=== PATIENT | female | born 1990 | race Caucasian/White ===

== ENCOUNTER 2022-09-07 05:56 | Outpatient (REF) | payer OTHER, SELFPAY ==
[2022-09-07 06:11] LABS: MANUAL DIFF FLAG NO
[2022-09-07 07:22] LABS: Basophils Percent Auto 0.2 % (0-2); Eosinophils Absolute Auto 0.1 X10*3/uL (0.0-0.4); Eosinophils Percent Auto 1.3 % (0-4); Hematocrit 36.5 % (37.0-47.0); Hemoglobin 12.2 g/dl (12.0-16.0); Imm Gran Abs Auto 0.02 X10*3/uL (0.00-0.03); Imm Gran Pct Auto 0.4 % (0.0-0.4); Lymphocytes Absolute Auto 1.3 X10*3/uL (1.2-4.9); Mean Corpuscular HGB Conc 33.4 g/dl (31.0-35.0); Mean Corpuscular Hemoglobin 29.3 pg (27.0-33.0); Mean Corpuscular Volume 87.7 fL (80.0-98.0); Mean Platelet Volume 10.6 fL (9.4-12.3); Monocytes Absolute Auto 0.7 X10*3/uL (0.1-1.2); Monocytes Percent Auto 12.2 % (2-11); Neutrophils Absolute Auto 3.3 x10*3/uL (2.0-8.3); Neutrophils Percent Auto 61.9 % (45-73); Platelet Count 271 X10*3/uL (160-400); Red Blood Count 4.16 X10*6/uL (4.20-5.50); Red Cell Distribution Width 12.5 % (11.0-16.0); White Blood Count 5.3 X10*3/uL (4.8-10.8)
[2022-09-07 08:03] LABS: Erythrocyte Sedimentation Rate 23 MM/HR (0-20)
[2022-09-07 08:26] LABS: Alanine Aminotransferase 34 U/L (0-31); Albumin Level 4.3 g/dL (3.5-5.0); Alkaline Phosphatase 70 U/L (39-117); Anion Gap 11 (12-20); Aspartate Amino Transferase 34 U/L (5-31); Bilirubin Total 1.1 mg/dL (0.0-1.0); Blood Urea Nitrogen 11 mg/dL (9-16); C Reactive Protein 0.88 mg/dL (< or = 0.50); Calcium 9.5 mg/dL (8.4-10.2); Carbon Dioxide 28 mmol/L (22-29); Chloride 105 mmol/L (96-108); Cholesterol 183 mg/dL; Estimated Glomerular Filt Rate > 60; Glucose Random 95 mg/dL (60-115); HDL Cholesterol 38 mg/dL; LDL Cholesterol Calculated 113 mg/dl; Potassium 4.2 mmol/L (3.3-5.1); Sodium 140 mmol/L (135-145); TSH reflex Free T4 1.61 uIU/mL (0.32-4.0); Total Protein 7.6 g/dL (6.5-8.0); Triglycerides 162 mg/dL; Vitamin D 25-OH Total 11.7 ng/mL (>30)
[2022-09-07 08:44] LABS: Rheumatoid Factor 33.9 IU/mL (<15.0)
[2022-09-14 13:28] LABS: Anti Nuclear Antibody Pattern Nuclear, Speckled; Anti Nuclear Antibody Screen POSITIVE (NEGATIVE)
== END 2022-09-07 05:57 | disposition home or self-care (01) ==
LOC: HO.LAB 05:56
PROVIDERS: PCP Internal Medicine; Visit Provider Nurse Practitioner Family
DX: Z13.29 Encounter for screening for other suspected endocrine disorder (principal); Z13.21 Encounter for screening for nutritional disorder; Z13.0 Encounter for screening for diseases of the blood and blood-forming organs and certain disorders involving the immune mechanism; Z13.220 Encounter for screening for lipoid disorders; L81.9 Disorder of pigmentation, unspecified; Z82.61 Family history of arthritis; E55.9 Vitamin D deficiency, unspecified; E03.9 Hypothyroidism, unspecified; E78.5 Hyperlipidemia, unspecified; D64.9 Anemia, unspecified
CPT/HCPCS: 36415; 80053; 80061; 82306; 84443; 85025; 85652; 86038; 86039; 86140; 86431

== ENCOUNTER 2022-12-20 08:41 | Outpatient (AMB) | payer OTHER, SELFPAY ==
[2022-12-20 08:46] VITALS: BP 122/68; PULSE 67; TEMP 36.7; O2SAT 99; BMI 31.9
--- NOTE | 2022-12-20 08:46 | MHC.OFFVIS ---
Intake Vital Signs 12/20/22 08:46 Height 5 ft 3 in Weight 180 lb 1.883 oz BMI 31.9 BP 122/68 Blood Pressure Location Rt brachial Position Sitting Pulse 67 Pulse Source Pulse Oximeter Temp 98.1 F Temp Source Skin Pulse Oximetry (%) 99 Intake Visit Reasons: Disorder of pigmentation, unspecified Intake Note: New pt presents today for consult. C/o bl foot pain, reports approx 2 yrs ago began to notice toes purple and super sensitive, work shoes cause extreme pain. 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 The condition started about 2 years ago. Her toes are pinkish purple, usually throughout the day, worse in the cold and when wet. She also has to wear safety shoes at work which make her pain worse. Wearing comfortable shoes reduce her symptoms. This is associated with sensitivity to touch when her toes are purple. She denies any similar symptoms affecting her fingers. States that she has been losing hair over the last 2 years. Denies any skin rashes. Denies any mouth ulcers or blood or frothy urine. Denies any history of DVT/PE. Patient was once before and had a miscarriage. She just discovered that she is 12 weeks . This is her 2nd . Mentions that her mother has SLE manifested by Raynaud's, joint pain and hair loss. [facility] Medical History (Updated 12/20/22 @ 09:33 by Allison Amezquita MD) Peritonitis Surgical History H/O wisdom tooth extraction History of removal of cyst History of tonsillectomy Family History Mother SLE (systemic lupus erythematosus) Osteoarthritis Father Rheumatoid arthritis Anxiety and depression Social History Housing: House Alcohol intake: current Alcohol intake frequency: holidays/special occasions only Patient Tobacco Use Status: Never used Tobacco Tobacco use type: Cigarette e-Cigarette/Vaping Use: Never Used Substance Use Type: Marijuana service: No Current occupational status: employed 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 Female Reproductive History Menstrual Age of Menarche: 13 Total pregnancies: 2 Ab spontaneous: 1 Review of Systems Const Reports weight gain Eyes Reports no additional complaints ENT Denies sore throat Musc Reports tingling Skin/Breast Reports rash and Reports skin pain Neuro Reports tingling Physical Exam Vital Signs: Last Vital Signs Temp 98.1 F 12/20/22 08:46 Pulse 67 12/20/22 08:46 BP 122/68 12/20/22 08:46 Pulse Ox 99 12/20/22 08:46 BMI result Body Mass Index 31.9 Const General: cooperative, healthy appearing and comfortable Nutritional Appearance: overweight Orientation/consciousness: patient oriented x3 Limitations: no limitations HEENT Head: Yes normocephalic and Yes atraumatic Mouth: moist mucous membranes Resp Effort & Inspection: normal respiratory effort and able to speak in complete sentences Auscultation: clear to auscultation bilaterally Cardio Rate: regular rate Rhythm: regular rhythm Neuro General: patient oriented x3 Extrem Other: Chilblains lesions of her toes bilaterally. Toes are pink in color and cool to touch Normal nailfold capillaroscopy Bilateral cool fingers No active synovitis Assessment & Plan Assessment & Plan (1) Chilblain: Code(s): T69.1XXA - Chilblains, initial encounter Qualifiers: Encounter type: initial encounter Qualified Code(s): T69.1XXA - Chilblains, initial encounter Plan: This is a 32-year-old female who presents for evaluation of bilateral pink cool toes for the last 2 years. Clinical picture consistent with chilblains. Patient is 12 weeks . Advised patient to keep her toes as warm as and dry and comfortable as possible Will prescribe nitroglycerin ointment. Re-evaluate in 6 weeks (2) CORAL positive: Code(s): R76.8 - Other specified abnormal immunological findings in serum Plan: Given positive family history of SLE in her mother, chilblain's and positive CORAL. Will order comprehensive serology to screen for underlying autoimmune rheumatic disease Plan I spent 47 minutes reviewing patient's chart, evaluating patient, ordering diagnostic workup, counseling patient and documenting in the chart Orders: Orders Beta-2 Glycoprotein Antibody Today D68.61 - Antiphospholipid syndrome Cardiolipin Antibodies Today D68.61 - Antiphospholipid syndrome Lupus Anticoagulant Panel Today D68.61 - Antiphospholipid syndrome C Reactive Protein Today M32.9 - Systemic lupus erythematosus, unspecified Protein Creatinine Ratio, Ur Today M32.9 - Systemic lupus erythematosus, unspecified Erythrocyte Sedimentation Rate Today M32.9 - Systemic lupus erythematosus, unspecified Complement C3 Today M32.9 - Systemic lupus erythematosus, unspecified Complement C4 Today M32.9 - Systemic lupus erythematosus, unspecified Anti DNA DS Antibody Today M32.9 - Systemic lupus erythematosus, unspecified DNA Double Stranded-Crithidia Today M32.9 - Systemic lupus erythematosus, unspecified Anti Extractable Nuclear Ag Today M32.9 - Systemic lupus erythematosus, unspecified Sjogren's Antibodies Today M32.9 - Systemic lupus erythematosus, unspecified UA w Microscopic Today M32.9 - Systemic lupus erythematosus, unspecified Cyclic Citrullinated Peptide Today M05.9 - Rheumatoid arthritis with rheumatoid factor, unspecified Comprehensive Met. Panel Today M32.9 - Systemic lupus erythematosus, unspecified Complete Blood Count Auto Diff Today M32.9 - Systemic lupus erythematosus, unspecified Cryoglobulin Today M32.9 - Systemic lupus erythematosus, unspecified Immunofixation Pnl, Serum Today M32.9 - Systemic lupus erythematosus, unspecified Protein Electrophoresis, Serum Today M32.9 - Systemic lupus erythematosus, unspecified Hepatitis A,B,C Profile Today Z11.59 - Encounter for screening for other viral diseases Scleroderma 12 Panel Today M34.9 - Systemic sclerosis, unspecified Medications: New nitroglycerin 2% administer 2 doses/day (approx. 6 hrs apart); remove for 10-12 hrs per 24 hours 0.5 inches transdermal BID 60 grams 1RF Coding Level of Care Code New Pt Level 4 (30522) Diagnoses Chilblain T69.1XXA Encounter type: initial encounter CORAL positive R76.8
== END 2022-12-20 09:23 | disposition home or self-care (01) ==
PROVIDERS: PCP Internal Medicine; Visit Provider Student in an Organized Health Care Education/Training Program
DX: T69.1XXA Chilblains, initial encounter (principal); R76.8 Other specified abnormal immunological findings in serum
CPT/HCPCS: 99204

== ENCOUNTER 2022-12-20 08:41 | Outpatient (REF) | payer OTHER, SELFPAY ==
[2022-12-20 10:10] LABS: Appearance Urine Cloudy; Color Urine Dark Yellow; Glucose Urine UA Negative (Negative); Leukocyte Esterase Urine Trace (Negative); Nitrite Urine Negative (Negative); PH 7.5 (5.0-9.0); Specific Gravity - Urine >= 1.030 (1.005-1.025); UMIC TRIGGER UA YES; Urine Blood Negative (Negative); Urine Ketones 15 mg/dL (Negative); Urine Protein 30 (1+) mg/dL (Neg-Trace)
[2022-12-20 10:23] LABS: Bacteria Urine 4+ (None Seen); Hyaline Casts Urine 0-2 /LPF (0-2); RBC Urine 0-2 /HPF (0-2); Squamous Epithelial Cell Urine >20 /HPF (0-2); WBC Urine 0-5 /HPF (0-5)
[2022-12-20 10:53] LABS: Alanine Aminotransferase 18 U/L (0-31); Albumin Level 4.3 g/dL (3.5-5.0); Alkaline Phosphatase 56 U/L (39-117); Aspartate Amino Transferase 22 U/L (5-31); Bilirubin Direct 0.3 mg/dL (0.0-0.5); Bilirubin Total 0.8 mg/dL (0.0-1.0); C Reactive Protein 0.25 mg/dL (< or = 0.50); Total Protein 7.9 g/dL (6.5-8.0)
[2022-12-20 10:55] LABS: Protein/Creatinine Ratio, Ur 0.06 (<0.2); Total Protein Urine Random 23 mg/dL (<12)
[2022-12-20 10:56] LABS: Erythrocyte Sedimentation Rate 23 MM/HR (0-20)
[2022-12-20 11:16] LABS: Vitamin D 25-OH Total 16.4 ng/mL (>30)
[2022-12-20 11:17] LABS: HBsAGNum1 0.41 S/CO (0.00-0.99); Hepatitis A Antibody IgM 0.21 Index (0-0.79); Hepatitis B Core Antibody Nonreactive (Nonreactive); Hepatitis B Surface Antigen Negative (Negative); ~HepC Num1 0.07 S/CO (0.00-0.79); ~Hepatitis A Antibody IgM Nonreactive (Nonreactive); ~Hepatitis B Surface Antibody REACTIVE (Nonreactive); ~Hepatitis C Antibody Nonreactive (Nonreactive)
[2022-12-21 14:48] LABS: Complement C3 154 mg/dL (83-193)
[2022-12-22 13:54] LABS: Anti DNA DS Antibody <1 IU/mL; Antibody to SS-A Antigen >8.0 POS AI (<1.0 NEG); Antibody to SS-B Antigen <1.0 NEG AI (<1.0 NEG); Cardiolipin IgG Ab <2.0 GPL-U/mL; Cardiolipin IgM Ab <2.0 MPL-U/mL; SM/Ribonucleoprotein Ab <1.0 NEG AI (<1.0 NEG); Smith Protein <1.0 NEG AI (<1.0 NEG)
[2022-12-22 15:24] LABS: Cyclic Citrullinated Peptide 218 UNITS
[2022-12-23 12:38] LABS: PTT (LAC) Screen 36 sec (<=40)
[2022-12-26 06:08] LABS: Beta-2 Glycoprotein IgA <2.0 U/mL (<20.0); Beta-2 Glycoprotein IgG <2.0 U/mL (<20.0); Beta-2 Glycoprotein IgM <2.0 U/mL (<20.0)
[2022-12-26 15:17] LABS: DNAds, Crithidia Antibody Negative (Negative)
== END 2022-12-20 08:42 | disposition home or self-care (01) ==
LOC: HO.LAB 08:41
PROVIDERS: Nurse Practitioner Family; PCP Internal Medicine; Visit Provider Student in an Organized Health Care Education/Training Program
DX: M32.9 Systemic lupus erythematosus, unspecified (principal); M05.9 Rheumatoid arthritis with rheumatoid factor, unspecified; D68.61 Antiphospholipid syndrome; E55.9 Vitamin D deficiency, unspecified; R79.89 Other specified abnormal findings of blood chemistry
CPT/HCPCS: 36415; 80076; 81001; 82306; 84156; 85597; 85598; 85613; 85652; 85670; 85730; 86140; 86146; 86147; 86160; 86200; 86225; 86235; 86255; 86704; 86706; 86709; 86803; 87340

== ENCOUNTER 2022-12-28 14:31 | Outpatient (AMB) | payer OTHER, SELFPAY ==
--- NOTE | 2022-12-28 14:38 | MHC.OFFVIS ---
Intake Vital Signs 12/28/22 14:39 Height 5 ft 3 in Weight 181 lb 10.574 oz BMI 32.2 BP 118/70 Blood Pressure Location Rt brachial Position Sitting Pulse 79 Pulse Source Pulse Oximeter Temp 99 F Temp Source Skin Pulse Oximetry (%) 98 Oxygen Delivery Method Room Air Intake Visit Reasons: Discuss lab results Intake Note: Here to discuss test results. Patient is now 13 weeks , awaiting initial US appt. Electronic Gluer Required: No Accompanied by: Self / Same As Patient Allergies cephalexin [CEPHALEXIN] Allergy (Unknown, Verified 12/28/22 14:39) rash Medication List - Last Reconciled 12/28/22 by Allison Amezquita MD hydroxychloroquine 200 mg PO BID nitroglycerin 2% 0.5 inches transdermal BID vit,[id number] 29 mg iron- 1 mg (Prenatabs Rx) 1 tab PO DAILY HPI HPI Comments History of Present Illness Details Patient returns for follow-up after completion of her blood work. He started using the nitroglycerin paste but it isn't very helpful for her chilblains. States that her 1st ultrasound appointment is next week. States that she will be following up with high-risk . Initial history: This is a 32-year-old female who presents for evaluation of bilateral purple toes. The condition started about 2 years ago. Her toes are pinkish purple, usually throughout the day, worse in the cold and when wet. She also has to wear safety shoes at work which make her pain worse. Wearing comfortable shoes reduce her symptoms. This is associated with sensitivity to touch when her toes are purple. She denies any similar symptoms affecting her fingers. States that she has been losing hair over the last 2 years. Denies any skin rashes. Denies any mouth ulcers or blood or frothy urine. Denies any history of DVT/PE. Patient was once before and had a miscarriage. She just discovered that she is 12 weeks . This is her 2nd . Mentions that her mother has SLE manifested by Raynaud's, joint pain and hair loss. [facility] Medical History (Updated 12/28/22 @ 15:22 by Allison Amezquita MD) Lupus (systemic lupus erythematosus) Peritonitis Surgical History H/O wisdom tooth extraction History of removal of cyst History of tonsillectomy Family History Mother SLE (systemic lupus erythematosus) Osteoarthritis Father Rheumatoid arthritis Anxiety and depression Social History Housing: House Alcohol intake: current Alcohol intake frequency: holidays/special occasions only Patient Tobacco Use Status: Never used Tobacco Tobacco use type: Cigarette e-Cigarette/Vaping Use: Never Used Substance Use Type: Marijuana service: No Current occupational status: employed 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 Female Reproductive History Menstrual Age of Menarche: 13 Total pregnancies: 1 (13 weeks as of today.) Review of Systems Eyes Reports no additional complaints Musc Reports tingling Skin/Breast Reports rash and Reports skin pain Neuro Reports tingling Physical Exam Vital Signs: Last Vital Signs Temp 99 F 12/28/22 14:39 Pulse 79 12/28/22 14:39 BP 118/70 12/28/22 14:39 Pulse Ox 98 12/28/22 14:39 Oxygen Delivery Method Room Air 12/28/22 14:39 BMI result Body Mass Index 32.2 Const General: cooperative, healthy appearing and comfortable Nutritional Appearance: overweight Orientation/consciousness: patient oriented x3 Limitations: no limitations HEENT Head: Yes normocephalic and Yes atraumatic Mouth: moist mucous membranes Resp Effort & Inspection: normal respiratory effort and able to speak in complete sentences Neuro General: patient oriented x3 Assessment & Plan Assessment & Plan (1) Lupus (systemic lupus erythematosus): Code(s): M32.9 - Systemic lupus erythematosus, unspecified Qualifiers: Systemic lupus erythematosus type: unspecified Systemic lupus erythematosus organ involvement: other Qualified Code(s): M32.19 - Other organ or system involvement in systemic lupus erythematosus Plan: This is a 32-year-old female who initially presented for evaluation of a positive CORAL. On exam patient had chilblains affecting both feet. Subsequent testing showed positive anti SSA in high titers. Patient has no features of active SLE otherwise. 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 Given positive anti SSA there is a risk of lupus, discussed with patient risk of congenital heart block is about 2%. The risk can be mitigated by starting hydroxychloroquine, the best effect would be if hydroxychloroquine was started 3 months before conception. I believe however that hydroxychloroquine would be recommended in her case. Patient agrees to proceed. Will start hydroxychloroquine 200 mg Twice daily. I explained to patient that she will need to follow up with high-risk and she will likely need serial echocardiograms. A baby aspirin can also be beneficial. Advised patient to discuss it with her OBGYN. Labs before next visit in 3 months (2) Rheumatoid factor positive: Code(s): R76.8 - Other specified abnormal immunological findings in serum Plan: Positive rheumatoid factor Positive anti CCP antibody in high titers but no signs suggestive of rheumatoid arthritis. Will continue to monitor (3) Long-term use of hydroxychloroquine: Code(s): Z79.899 - Other termite exterminator helper (current) drug therapy Plan: Discussed risk of retinopathy associated with hydroxychloroquine. 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 Hydroxychloroquine is started. Continue to use nitroglycerin paste Plan I spent 26 minutes reviewing patient's chart, evaluating patient, ordering diagnostic workup, counseling patient and documenting in the chart Orders: Orders Comprehensive Met. Panel 3 Months M32.9 - Systemic lupus erythematosus, unspecified C Reactive Protein 3 Months M32.9 - Systemic lupus erythematosus, unspecified Protein Creatinine Ratio, Ur 3 Months M32.9 - Systemic lupus erythematosus, unspecified Complete Blood Count Auto Diff 3 Months M32.9 - Systemic lupus erythematosus, unspecified Erythrocyte Sedimentation Rate 3 Months M32.9 - Systemic lupus erythematosus, unspecified Complement C3 3 Months M32.9 - Systemic lupus erythematosus, unspecified Complement C4 3 Months M32.9 - Systemic lupus erythematosus, unspecified Anti DNA DS Antibody 3 Months M32.9 - Systemic lupus erythematosus, unspecified UA w Microscopic 3 Months M32.9 - Systemic lupus erythematosus, unspecified Referrals Ophthalmology Referral Z79.899 - Other termite exterminator helper (current) drug therapy Medications: New hydroxychloroquine 200 mg PO BID 180 tabs 1RF Coding Level of Care Code Est Pt Level 4 (09214) Diagnoses Lupus (systemic lupus erythematosus) M32.19 Systemic lupus erythematosus type: unspecified Systemic lupus erythematosus organ involvement: other Rheumatoid factor positive R76.8 Long-term use of hydroxychloroquine Z79.899 Chilblain T69.1XXA Encounter type: initial encounter
[2022-12-28 14:39] VITALS: BP 118/70; PULSE 79; TEMP 37.2; O2SAT 98; BMI 32.2
== END 2022-12-28 15:39 | disposition home or self-care (01) ==
PROVIDERS: PCP Internal Medicine; Visit Provider Student in an Organized Health Care Education/Training Program
DX: M32.19 Other organ or system involvement in systemic lupus erythematosus (principal); R76.8 Other specified abnormal immunological findings in serum; Z79.899 Other long term (current) drug therapy; T69.1XXA Chilblains, initial encounter
CPT/HCPCS: 99214

== ENCOUNTER → 2022-12-28 14:31 | Outpatient (BNVA) | payer OTHER, SELFPAY | PROVIDERS: PCP Internal Medicine; Visit Provider Student in an Organized Health Care Education/Training Program ==

== ENCOUNTER 2023-02-21 07:46 | Outpatient (AMB) | payer OTHER, SELFPAY ==
--- NOTE | 2023-02-21 07:48 | A.OFFVIS_ITS ---
Intake Vital Signs 02/21/23 07:49 Height 5 ft 3 in Weight 176 lb 5.917 oz BMI 31.2 BP 122/62 Blood Pressure Location Lt brachial Position Sitting Pulse 100 Pulse Source Pulse Oximeter Temp 97.9 F Temp Source Skin Pulse Oximetry (%) 100 Oxygen Delivery Method Room Air Intake Visit Reasons: Increased swelling and pain Intake Note: Pt presents today because she has been having increased lower back pain, and L leg pain; ankle swelling since 01/18/23. Patient is , has been using tylenol. She was last seen in office on 12/28/22 and was started on plaquenil, has eye appt 03/29/23 at 9:[address] Chacon. c/o left ankle and leg pain when walking a lot . 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 Required: No Accompanied by: Self / Same As Patient Allergies cephalexin [CEPHALEXIN] Allergy (Unknown, Verified 02/21/23 07:52) rash Medication List - Last Reconciled 02/21/23 by Allison Amezquita MD aspirin 162 mg PO BEDTIME doxylamine succinate (Nighttime Sleep-Aid (doxylamine)) 25 mg PO BEDTIME hydroxychloroquine 200 mg PO BID metoclopramide HCl 10 mg PO QID PRN nitroglycerin 2% 0.5 inches transdermal BID polyethylene glycol 3350 (Gavilax) 17 grams PO DAILY vit,[id number] 29 mg iron- 1 mg (Prenatabs Rx) 1 tab PO DAILY wheat dextrin (Benefiber Healthy Shape) grams PO HPI HPI Comments History of Present Illness Details 32-year-old female with SLE presents for follow-up. She has 16 weeks today. States that anti she has been having lower back pain and bilateral hip pain, worse with walking, left ankle pain and swelling with increased walking. States that she got intermittent rashes on her forehead that self-resolved. Denied any fever. Compliant with hydroxychloroquine. Started on aspirin by her OBGYN Initial history: This is a 32-year-old female who presents for evaluation of bilateral purple toes. The condition started about 2 years ago. Her toes are pinkish purple, usually throughout the day, worse in the cold and when wet. She also has to wear safety shoes at work which make her pain worse. Wearing comfortable shoes reduce her symptoms. This is associated with sensitivity to touch when her toes are purple. She denies any similar symptoms affecting her fingers. States that she has been losing hair over the last 2 years. Denies any skin rashes. Denies any mouth ulcers or blood or frothy urine. Denies any history of DVT/PE. Patient was once before and had a miscarriage. She just discovered that she is 12 weeks . This is her 2nd . Mentions that her mother has SLE manifested by Raynaud's, joint pain and hair loss. [facility] Medical History Lupus (systemic lupus erythematosus) Peritonitis Surgical History History of removal of cyst H/O wisdom tooth extraction History of tonsillectomy Family History Mother SLE (systemic lupus erythematosus) Osteoarthritis Father Rheumatoid arthritis Anxiety and depression Social History Housing: House Alcohol intake: current Alcohol intake frequency: holidays/special occasions only Patient Tobacco Use Status: Never used Tobacco Tobacco use type: Cigarette e-Cigarette/Vaping Use: Never Used Substance Use Type: Marijuana service: No Current occupational status: employed 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 Female Reproductive History Menstrual Age of Menarche: 13 Review of Systems Musc Reports back pain, Reports arthralgias and Reports joint swelling Skin/Breast Reports rash Physical Exam Vital Signs: Last Vital Signs Temp 97.9 F 02/21/23 07:49 Pulse 100 02/21/23 07:49 BP 122/62 02/21/23 07:49 Pulse Ox 100 02/21/23 07:49 Oxygen Delivery Method Room Air 02/21/23 07:49 BMI result Body Mass Index 31.2 Const General: cooperative, healthy appearing and comfortable Nutritional Appearance: overweight Orientation/consciousness: patient oriented x3 Limitations: no limitations HEENT Other: No oral ulcers Head: Yes normocephalic and Yes atraumatic Mouth: moist mucous membranes Resp Effort & Inspection: normal respiratory effort and able to speak in complete sentences Neuro General: patient oriented x3 Extrem Other: Bilateral lower lumbar paraspinal muscle tenderness Bilateral trochanteric bursa area tenderness with negative Jane's test No active synovitis Assessment & Plan Assessment & Plan (1) Lupus (systemic lupus erythematosus): Comment: dx 11/2022 (+++CORAL, +++SSa, chillblain's) Code(s): M32.9 - Systemic lupus erythematosus, unspecified Qualifiers: Systemic lupus erythematosus type: unspecified Systemic lupus erythematosus organ involvement: other Qualified Code(s): M32.19 - Other organ or system involvement in systemic lupus erythematosus Plan: This is a 32-year-old female with SLE who presents for follow-up. She has 16 with now. She is on hydroxychloroquine 200 mg Twice daily and baby aspirin. Patient has been complaining of bilateral lower back pain, bilateral hip pain and left ankle pain and swelling with walking. Symptoms seem mechanical in nature rather than inflammatory. However will check SLE activity labs today. Advised patient to take Tylenol as needed for her pain. Continue hydroxychloroquine 200 mg Twice daily and continue baby aspirin. Continue to follow up with high-risk Labs before next visit in 3 month (2) Rheumatoid factor positive: Code(s): R76.8 - Other specified abnormal immunological findings in serum Plan: Positive rheumatoid factor Positive anti CCP antibody in high titers but no signs suggestive of rheumatoid arthritis. Will continue to monitor (3) Long-term use of hydroxychloroquine: Code(s): Z79.899 - Other park guard (current) drug therapy Plan: Discussed risk of retinopathy associated with hydroxychloroquine. 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 Hydroxychloroquine was started, per patient's symptoms not much better or worse. It is not particularly bothersome for patient at this point. Plan I spent 26 minutes reviewing patient's chart, evaluating patient, ordering diagnostic workup, counseling patient and documenting in the chart Orders: Orders C Reactive Protein Today M32.9 - Systemic lupus erythematosus, unspecified UA w Microscopic Today M32.9 - Systemic lupus erythematosus, unspecified Complement C4 3 Months M32.9 - Systemic lupus erythematosus, unspecified Protein Creatinine Ratio, Ur 3 Months M32.9 - Systemic lupus erythematosus, unspecified Comprehensive Met. Panel 3 Months M32.9 - Systemic lupus erythematosus, unspecified Complete Blood Count Auto Diff Today M32.9 - Systemic lupus erythematosus, unspecified Comprehensive Met. Panel Today M32.9 - Systemic lupus erythematosus, unspecified Complement C3 Today M32.9 - Systemic lupus erythematosus, unspecified Complement C4 Today M32.9 - Systemic lupus erythematosus, unspecified Erythrocyte Sedimentation Rate Today M32.9 - Systemic lupus erythematosus, unspecified Anti DNA DS Antibody Today M32.9 - Systemic lupus erythematosus, unspecified Protein Creatinine Ratio, Ur Today M32.9 - Systemic lupus erythematosus, unspecified Anti DNA DS Antibody 3 Months M32.9 - Systemic lupus erythematosus, unspecified Complement C3 3 Months M32.9 - Systemic lupus erythematosus, unspecified C Reactive Protein 3 Months M32.9 - Systemic lupus erythematosus, unspecified UA w Microscopic 3 Months M32.9 - Systemic lupus erythematosus, unspecified Complete Blood Count Auto Diff 3 Months M32.9 - Systemic lupus erythematosus, unspecified Coding Level of Care Code Est Pt Level 4 (14192) Diagnoses Systemic lupus erythematosus with other organ involvement, unspecified SLE type M32.19 Systemic lupus erythematosus type: unspecified Systemic lupus erythematosus organ involvement: other Rheumatoid factor positive R76.8 Long-term use of hydroxychloroquine Z79.899 Chilblains, initial encounter T69.1XXA Encounter type: initial encounter
[2023-02-21 07:49] VITALS: BP 122/62; PULSE 100; TEMP 36.6; O2SAT 100; BMI 31.2
== END 2023-02-21 08:20 | disposition home or self-care (01) ==
PROVIDERS: PCP Internal Medicine; Visit Provider Student in an Organized Health Care Education/Training Program
DX: M32.19 Other organ or system involvement in systemic lupus erythematosus (principal); R76.8 Other specified abnormal immunological findings in serum; Z79.899 Other long term (current) drug therapy; T69.1XXA Chilblains, initial encounter
CPT/HCPCS: 99214

== ENCOUNTER 2023-02-21 07:46 | Outpatient (REF) | payer OTHER, SELFPAY ==
[2023-02-21 09:00] LABS: MANUAL DIFF FLAG NO
[2023-02-21 09:21] LABS: Basophils Percent Auto 0.2 % (0-2); Eosinophils Absolute Auto 0.1 X10*3/uL (0.0-0.4); Eosinophils Percent Auto 0.6 % (0-4); Hematocrit 34.4 % (37.0-47.0); Hemoglobin 11.9 g/dl (12.0-16.0); Imm Gran Abs Auto 0.09 X10*3/uL (0.00-0.03); Imm Gran Pct Auto 1.1 % (0.0-0.4); Lymphocytes Percent Auto 12.1 % (20-40); Mean Corpuscular HGB Conc 34.6 g/dl (31.0-35.0); Mean Corpuscular Hemoglobin 29.7 pg (27.0-33.0); Mean Corpuscular Volume 85.8 fL (80.0-98.0); Mean Platelet Volume 10.5 fL (9.4-12.3); Monocytes Absolute Auto 0.8 X10*3/uL (0.1-1.2); Monocytes Percent Auto 8.9 % (2-11); Neutrophils Absolute Auto 6.6 x10*3/uL (2.0-8.3); Neutrophils Percent Auto 77.1 % (45-73); Platelet Count 246 X10*3/uL (160-400); Red Blood Count 4.01 X10*6/uL (4.20-5.50); Red Cell Distribution Width 13.2 % (11.0-16.0); White Blood Count 8.6 X10*3/uL (4.8-10.8)
[2023-02-21 09:45] LABS: Alanine Aminotransferase 10 U/L (0-31); Albumin Level 4.1 g/dL (3.5-5.0); Alkaline Phosphatase 55 U/L (39-117); Anion Gap 12 (12-20); Aspartate Amino Transferase 19 U/L (5-31); Bilirubin Total 0.5 mg/dL (0.0-1.0); Blood Urea Nitrogen 6 mg/dL (9-16); C Reactive Protein 0.38 mg/dL (< or = 0.50); Calcium 9.9 mg/dL (8.4-10.2); Carbon Dioxide 22 mmol/L (22-29); Chloride 104 mmol/L (96-108); Estimated Glomerular Filt Rate > 60; Glucose Random 82 mg/dL (60-115); Potassium 3.4 mmol/L (3.3-5.1); Sodium 135 mmol/L (135-145); Total Protein 7.9 g/dL (6.5-8.0)
[2023-02-21 10:04] LABS: Erythrocyte Sedimentation Rate 44 MM/HR (0-20)
[2023-02-21 10:10] LABS: HBS Num1 11.87 mIU/mL (0-7.99); HBc Num1 0.08 S/CO (0.00-0.79); HBsAGNum1 0.35 S/CO (0.00-0.99); Hepatitis A Antibody IgM 0.16 Index (0-0.79); Hepatitis B Core Antibody Nonreactive (Nonreactive); Hepatitis B Surface Antigen Negative (Negative); ~HepC Num1 0.05 S/CO (0.00-0.79); ~Hepatitis A Antibody IgM Nonreactive (Nonreactive); ~Hepatitis C Antibody Nonreactive (Nonreactive)
[2023-02-21 10:43] LABS: Appearance Urine Clear; Color Urine Dark Yellow; Glucose Urine UA Negative (Negative); Leukocyte Esterase Urine Trace (Negative); Nitrite Urine Negative (Negative); PH 6.5 (5.0-9.0); Specific Gravity - Urine >= 1.030 (1.005-1.025); UMIC TRIGGER UA YES; Urine Blood Negative (Negative); Urine Ketones 15 mg/dL (Negative); Urine Protein 30 (1+) mg/dL (Neg-Trace)
[2023-02-21 10:47] LABS: Bacteria Urine Trace (None Seen); Hyaline Casts Urine 0-2 /LPF (0-2); RBC Urine 0-2 /HPF (0-2); WBC Urine 0-5 /HPF (0-5)
[2023-02-21 11:21] LABS: HBS Num2 12.35 mIU/mL (0-7.99); HBS Num3 12.37 mIU/mL (0-7.99); ~Hepatitis B Surface Antibody REACTIVE (Nonreactive)
[2023-02-21 11:40] LABS: Creatinine Urine 352.03 mg/dL; Protein/Creatinine Ratio, Ur 0.07 (<0.2); Total Protein Urine Random 25 mg/dL (<12)
[2023-02-23 11:43] LABS: Complement C3 169 mg/dL (83-193)
[2023-02-24 07:38] LABS: Anti DNA DS Antibody <1 IU/mL
[2023-02-24 10:44] LABS: Prot Elec - Albumin 4.1 g/dL (3.8-4.8); Prot Elec - Alpha1 0.4 g/dL (0.2-0.3); Prot Elec - Alpha2 0.8 g/dL (0.5-0.9); Prot Elec - Beta 1 0.5 g/dL (0.4-0.6); Prot Elec - Beta 2 0.4 g/dL (0.2-0.5); Prot Elec - Gamma 1.3 g/dL (0.8-1.7); Prot Elec - Total Protein 7.5 g/dL (6.1-8.1)
[2023-03-02 11:13] LABS: IgA 178 mg/dL (47-310); IgG 1525 mg/dL (600-1640); IgM 99 mg/dL (50-300)
[2023-03-02 12:44] LABS: Centromere Protein A Ab <11 SI (<11); Centromere Protein B Ab <11 SI (<11); Fibrillarin Ab <11 SI (<11); PM SCL 100 Ab <11 SI (<11); PM SCL 75 Ab <11 SI (<11); RNA Polymerase III RP11 Ab <11 SI (<11); RNA Polymerase III RP155 Ab <11 SI (<11); SCL-70 Extractable Nuclear Ab <11 SI (<11); Th-To Ab <11 SI (<11); U1 SNRNP RNP 70KD <11 SI (<11); U1 SNRNP RNP A 13 SI (<11); U1 SNRNP RNP C <11 SI (<11)
== END 2023-02-21 07:47 | disposition home or self-care (01) ==
LOC: HO.LAB 07:46
PROVIDERS: PCP Internal Medicine; Visit Provider Student in an Organized Health Care Education/Training Program
DX: Z11.59 Encounter for screening for other viral diseases (principal); M34.9 Systemic sclerosis, unspecified; M32.9 Systemic lupus erythematosus, unspecified; M32.19 Other organ or system involvement in systemic lupus erythematosus; R76.8 Other specified abnormal immunological findings in serum; T69.1XXA Chilblains, initial encounter; Z79.899 Other long term (current) drug therapy; Z72.89 Other problems related to lifestyle
CPT/HCPCS: 36415; 80053; 81001; 82570; 82595; 82784; 84156; 84165; 84182; 85025; 85652; 86140; 86160; 86225; 86235; 86334; 86704; 86706; 86709; 86803; 87340

== ENCOUNTER 2023-09-12 14:23 | Outpatient (AMB) | payer OTHER, SELFPAY ==
--- NOTE | 2023-09-12 14:31 | A.OFFPC_ITS ---
Vital Signs 09/12/23 14:33 Height 5 ft 3 in Weight 172 lb 4 oz BMI 30.5 BP 130/68 Blood Pressure Location Lt brachial Position Sitting Pulse 56 Pulse Source Pulse Oximeter Pulse Oximetry (%) 96 Oxygen Delivery Method Room Air Intake Visit Reasons: PE Intake Note: Patient is here today for a physical. 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 Required: No Senior Application Security Consultant: Not Required per policy Accompanied by: Self / Same As Patient Allergies No Known Allergies Allergy (Verified 09/12/23 14:37) Tobacco use date assessed: 09/12/23 Dental Screening Dental Screen Date: 09/12/23 Did you have a dental visit in the last 12 months?: Yes Did you have a dental problem in the last 6 months where you did not have access to dental care?: No Was dental information given to patient?: Patient has dentist HPI PE HPI Details 32-year-old female presents to the [facility] requesting an annual physical. Three months into patient was diagnosed with SLE. She had a and a successful . Both her parents are positive for autoimmune disease. Patient is taking hydroxychloroquine and seeing a chronic care nurse. Patient is pumping milk but unable to breastfeed. [facility] Medical History Lupus (systemic lupus erythematosus) Peritonitis Surgical History History of delivery History of removal of cyst H/O wisdom tooth extraction History of tonsillectomy Family History Mother SLE (systemic lupus erythematosus) Osteoarthritis Father Rheumatoid arthritis Anxiety and depression Social History Housing: House Alcohol intake: current Alcohol intake frequency: holidays/special occasions only Patient Tobacco Use Status: Never used Tobacco Tobacco use type: Cigarette e-Cigarette/Vaping Use: Never Used Second Hand Smoke Exposure: No Substance Use Type: Marijuana service: No Current occupational status: employed 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 1. Little interest or pleasure in doing things: not at all 2. Feeling down, depressed, or hopeless: not at all 3. Trouble falling or staying asleep, or sleeping too much: not at all 4. Feeling tired or having little energy: not at all 5. Poor appetite or overeating: not at all 6. Feeling bad about yourself - or that you are a failure or have let yourself or your family down: not at all 7. Trouble concentrating on things, such as reading the newspaper or watching television: not at all 8. Moving or speaking so slowly that other people could have noticed. Or the opposite - being so fidgety or restless that you have been moving around a lot more than usual: not at all 9. Thoughts that you would be better off or of hurting yourself in some way: not at all Total score: 0 Depression Screening Interpretation: Negative Depression Screening Done: Yes Source: Developed by Drs. Dre Becker, Bonny Salinas, Jordan Templeton and colleagues, with an educational marciano from [employer]. Thrive Questionnaire Date Thrive assessed: 09/12/23 I am a: Patient What is your living situation today?: I have a steady place to live Within the past 12 months, did the food you bought not last and you didn't have the money to get more?: Never true Within the past 12 months, did you worry whether your food would run out before you got money to buy more?: Never true Do you have trouble paying for medicines?: No Do you have trouble getting transportation to medical appointments?: No Do you have trouble paying your heating and electricity bill?: No Do you have trouble taking care of your child, family member or friend?: No Do you have trouble with day-to-day activities such as bathing, preparing meals, shopping, managing finances, etc.?: No Are you currently unemployed and looking for a job?: No Are you interested in more education?: No Currently or been in a relationship where the following occur: no concerns reported THRIVE Score: 0 AUDIT C Alcohol Use Questionnaire (AUDIT-C) 1. How often do you have a drink containing alcohol?: Never Total Score: 0 YESICA-7 AMB Questionnaire YESICA-7 Date YESICA - 7 assessed: 09/12/23 Feeling nervous, anxious, or on edge: 0 = Not at all Not being able to stop or control worryin = Not at all Worrying too much about different things: 0 = Not at all Trouble relaxin = Not at all Being so restless that it is hard to sit still: 0 = Not at all Becoming easily annoyed or irritable: 0 = Not at all Feeling afraid as if something awful might happen: 0 = Not at all Total YESICA-7 score (0-4 normal; 5-9 mild; 10-14 moderate; 15-21 severe): 0 Source: Developed by Drs. Dre Becker, Bonny Salinas, Jordan Templeton and colleagues, with an educational marciano from [employer]. Physical exam (Primary Care) Vital Signs: Last Vital Signs Pulse 56 09/12/23 14:33 BP 130/68 09/12/23 14:33 Pulse Ox 96 09/12/23 14:33 Oxygen Delivery Method Room Air 09/12/23 14:33 Care Plan Goal for BP management: Blood pressure is in range. BMI result Body Mass Index 30.5 Tobacco/Smoking Status: Tobacco use Status Tobacco use date assessed 09/12/23 09/12/23 14:41 Patient Tobacco Use Status Never used Tobacco 09/12/23 14:41 Tobacco use type Cigarette 09/12/23 14:41 e-Cigarette/Vaping Use Never Used 09/12/23 14:41 PHQ-9: PHQ-9 Score PHQ-9: Total score 0 09/12/23 14:41 Depression Screening Interpretation: Negative Thrive Assessment: Date of Thrive Assessment Date Thrive assessed 09/12/23 09/12/23 14:41 Currently or been in a relationship where the following occur: no concerns reported Const General: cooperative and healthy appearing Nutritional Appearance: well nourished Orientation/consciousness: patient oriented x3 Limitations: no limitations HENMT Head: Yes normal to inspection Eyes General: appearance normal, both eyes and all related structures Neck Neck: Yes normal visual inspection Chest Chest palpation & inspection: normal palpation of entire chest wall Resp Effort & Inspection: normal respiratory effort Neuro General: patient oriented x3 Assessment and Plan Assessment & Plan (1) Annual physical exam: Code(s): Z00.00 - Encounter for general adult medical examination without abnormal findings Plan: Patient to follow-up with chronic care nurse for her SLE. Counseling on the importance of diet and exercise done. Coding Level of Care Code Est Pt Prev Care [id number](88546) Diagnoses Annual physical exam Z00.00
[2023-09-12 14:33] VITALS: BP 130/68; PULSE 56; O2SAT 96; BMI 30.5
== END 2023-09-12 15:37 | disposition home or self-care (01) ==
PROVIDERS: PCP Internal Medicine; Visit Provider Internal Medicine
DX: Z00.00 Encounter for general adult medical examination without abnormal findings (principal)
CPT/HCPCS: 99395

== ENCOUNTER 2024-08-11 21:52 | Emergency (ER) | payer OTHER, SELFPAY ==
--- NOTE | ~2024-08-11 | CT_ITS ---
CLINICAL HISTORY: r flank pain ?stone Exam: CT abdomen and pelvis without intravenous contrast. Comparison: None. Findings: CT abdomen: Lung bases are clear. No acute bony abnormality. No fracture. No discrete renal or ureteral calculi identified. There is subtle hyperdensity at the corticomedullary junction of both kidneys. No hydronephrosis or perinephric stranding. Unenhanced liver, spleen, pancreas, gallbladder, and adrenal glands are unremarkable. [id number] amount of ingested contents throughout the stomach. No dilated small bowel. No free fluid or free air. CT pelvis: [id number] amount of stool throughout the colon. No colonic wall thickening or pericolonic inflammatory stranding is evident. Appendix is surgically absent. No enlarged lymph nodes. No free fluid or free air. Impression: 1. No discrete renal or ureteral calculi identified. The subtle hyperdensity of the corticomedullary junction of both kidneys can be seen with dehydration or early stone formation. 2. Prominent ingested contents within the stomach with moderate to large amount of stool throughout the colon. This suggests stool retention with delayed gastric emptying. Clinical correlation advised. This document has been electronically signed by: Raheem Mckoy MD on 08/12/2024 01:52:50
[2024-08-11 22:02] VITALS: BP 119/73; PULSE 87; RESP 22; TEMP 36.6; O2SAT 100; BMI 30.5
--- NOTE | 2024-08-11 22:44 | ED.ABDPAIN ---
HPI - Abdominal Pain General Chief Complaint: Abdominal Pain Stated Complaint: rt side to back pain Time Seen by Provider: 08/11/24 22:44 Source: patient Mode of arrival: ambulatory Limitations: no limitations History of Present Illness ED Provider: HPI narrative: Patient with no significant past medical history noted sudden onset of pain in right flank area radiating to the lower right lower abdomen started since a.m. today with nausea no vomiting no diarrhea no urinary symptoms patient never had similar pain in the past Related Data Previous Rx's ?Medication ?Instructions ?Recorded hydroxychloroquine 200 mg tablet 200 mg PO BID #180 tabs 12/28/22 polyethylene glycol 3350 17 17 g PO DAILY #510 grams 08/12/24 gram/dose oral powder (Miralax) Allergies Allergy/AdvReac Type Severity Reaction Status Date / Time No Known Allergies Allergy Verified 08/11/24 22:07 Review of Systems Review of Systems Yes all other systems are reviewed and are negative PMFSH Past Medical History Medical History Lupus (systemic lupus erythematosus) Peritonitis Surgical History History of delivery History of removal of cyst H/O wisdom tooth extraction History of tonsillectomy Family History Family History Mother SLE (systemic lupus erythematosus) Osteoarthritis Father Rheumatoid arthritis Anxiety and depression Social History Social History Housing: House Alcohol intake: current Alcohol intake frequency: does not drink Patient Tobacco Use Status: Never used Tobacco Tobacco use type: Cigarette e-Cigarette/Vaping Use: Never Used Second Hand Smoke Exposure: No Substance Use Type: Marijuana service: No Current occupational status: employed 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 Oriented X3. In severe distress Eyes: No pallor or icterus ENT: Pharynx normal. Oral Mucosa moist Neck: Normal inspection. Neck supple. CVS: Normal heart rate and rhythm. Pulses normal. Respiratory: No respiratory distress. Equal air entry bilateral, no wheezing/rales/rhonchi Abdomen: Soft and nontender. Bowel sounds are present, no mass palpable, right CVA tenderness ++ Skin: Skin warm and dry. Normal skin color. Normal skin turgor. Extremities: No lower extremity edema. No calf tenderness Neuro: Oriented X 3. No motor deficit. Medical Decision Making Medical Decision Making [facility] Narrative: Patient with back pain and diffuse abdominal pain does have history of constipation CT scan negative for acute labs are stable no UTI findings no hematuria CT scan showed constipation likely the cause for the pain or likely she might have passed a small stone Differential Diagnosis Differential Diagnoses: The differential diagnosis associated with the presentation includes Renal colic/ureteric stone/appendicitis/constipation Lab Data 08/11/24 23:02 08/11/24 23:02 Labs: Lab Results 08/11/24 08/12/24 Range/Units 23:02 00:24 WBC 7.0 (4.8-10.8) X10*3/uL RBC 4.07 L (4.20-5.50) X10*6/uL Hgb 11.3 L (12.0-16.0) g/dl Hct 33.9 L (37.0-47.0) % MCV 83.3 (80.0-98.0) fL MCH 27.8 (27.0-33.0) pg MCHC 33.3 (31.0-35.0) g/dl RDW 13.9 (11.0-16.0) % Plt Count 225 (160-400) X10*3/uL MPV 10.4 (9.4-12.3) fL Immature Gran % (Auto) 0.1 (0.0-0.4) % Neut % (Auto) 72.3 (45-73) % Lymph % (Auto) 17.5 L (20-40) % [place] % (Auto) 9.1 (2-11) % Eos % (Auto) 0.9 (0-4) % Baso % (Auto) 0.1 (0-2) % Lymph # (Auto) 1.2 (1.2-4.9) X10*3/uL [place] # (Auto) 0.6 (0.1-1.2) X10*3/uL Eos # (Auto) 0.1 (0.0-0.4) X10*3/uL Baso # (Auto) 0.0 (0.0-0.2) X10*3/uL Abs Immat Gran (auto) 0.01 (0.00-0.03) X10*3/uL Absolute Neuts (auto) 5.0 (2.0-8.3) x10*3/uL Absolute Nucleated RBC 0.000 (0.0-0.012) X10*3/uL Nucleated RBC % (auto) 0.0 (0.0-0.2) /100WBC Sodium 138 (135-145) mmol/L Potassium 3.9 (3.3-5.1) mmol/L Chloride 109 H (96-108) mmol/L Carbon Dioxide 22 (22-29) mmol/L Anion Gap 11 L (12-20) BUN 16 (9-16) mg/dL Creatinine 0.74 (0.5-1.4) mg/dL Estim Creat Clear Calc 107.9 Estimated GFR > 60 Random Glucose 108 (60-115) mg/dL Calcium 9.1 D (8.4-10.2) mg/dL Total Bilirubin 0.3 (0.0-1.0) mg/dL AST 27 (5-31) U/L ALT 19 (0-31) U/L Alkaline Phosphatase 78 (39-117) U/L Total Protein 7.5 (6.5-8.0) g/dL Albumin 4.3 (3.5-5.0) g/dL Beta HCG, Quant < 2 mIU/mL Urine Color Yellow Urine Appearance Clear Urine pH 6.5 (5.0-9.0) Ur Specific [place] >= 1.030 H (1.005-1.025) Urine Protein 30 (1+) H (Neg-Trace) mg/dL Urine Glucose (UA) Negative (Negative) mg/dL Urine Ketones Trace (Negative) mg/dL Urine Blood Negative (Negative) Urine Nitrite Negative (Negative) Ur Leukocyte Esterase Negative (Negative) Urine RBC 0-2 (0-2) /HPF Urine WBC 0-5 (0-5) /HPF Ur Squamous Epith Cells 0-2 (0-2) /HPF Urine Bacteria None Seen (None Seen) Hyaline Casts 0-2 (0-2) /LPF Independent Interpretation I performed an independent interpretation of an: CT Scan Radiology Impression Discussion of test interpretation with radiology: I have reviewed the radiologist's reading. Medications Administered Discontinued Medications Generic Name Dose Route Start Last Admin Trade Name Freq PRN Reason Stop Dose Admin Bisacodyl 10 mg 08/12/24 01:55 08/12/24 02:05 Bisacodyl 5 Mg Tablet.Dr PO 08/12/24 01:56 10 mg ONCE ONE Administration Sodium Chloride 1,000 mls @ 999 mls/hr 08/11/24 22:48 08/12/24 02:01 Ns IV 08/11/24 23:48 Infused .Q1H1M ONE Infusion Ketorolac Tromethamine 30 mg 08/11/24 22:49 08/11/24 23:17 Ketorolac Tromethamine 30 Mg/Ml Vial IVPUSH 08/11/24 22:50 30 mg ONCE ONE Administration Magnesium Hydroxide 30 ml 08/12/24 01:55 08/12/24 02:05 Milk Of Magnesia 30 Ml Oral.Susp PO 08/12/24 01:56 30 ml ONCE ONE Administration Morphine Sulfate 4 mg 08/11/24 22:49 08/11/24 23:18 Morphine Sulfate 4 Mg/Ml Cartridge IVPUSH 08/11/24 22:50 4 mg ONCE ONE Administration Protocol Ondansetron HCl 4 mg 08/11/24 22:49 08/11/24 23:17 Ondansetron Hcl 4 Mg/2 Ml Vial IVPUSH 08/11/24 22:50 4 mg ONCE ONE Administration Discharge Plan Discharge Clinical Impression: Constipation, Abdominal pain Patient Disposition: Home, Self-Care Instructions: Constipation (DC), Abdominal Pain (ED) Additional Instructions: Cause of your flank and abdominal pain not clear your CT scan is negative for kidney stone Likely you have constipation of the cause of the pain Drink plenty of fluids Stool softener as advised Prescriptions: New polyethylene glycol 3350 [Miralax] 17 gram/dose powder 17 g PO DAILY Qty: 510 0RF No Action hydroxychloroquine 200 mg tablet 200 mg PO BID Qty: 180 1RF Interventions: ED Discharge Assessment Last Done: 08/12/24 02:13 Discharge Date/Time: 08/12/24 02:14 Print Language: Gibralt[place]
[2024-08-11 23:10] LABS: MANUAL DIFF FLAG NO
[2024-08-11 23:12] LABS: Basophils Percent Auto 0.1 % (0-2); Eosinophils Absolute Auto 0.1 X10*3/uL (0.0-0.4); Eosinophils Percent Auto 0.9 % (0-4); Hematocrit 33.9 % (37.0-47.0); Hemoglobin 11.3 g/dl (12.0-16.0); Imm Gran Abs Auto 0.01 X10*3/uL (0.00-0.03); Imm Gran Pct Auto 0.1 % (0.0-0.4); Lymphocytes Absolute Auto 1.2 X10*3/uL (1.2-4.9); Lymphocytes Percent Auto 17.5 % (20-40); Mean Corpuscular HGB Conc 33.3 g/dl (31.0-35.0); Mean Corpuscular Hemoglobin 27.8 pg (27.0-33.0); Mean Corpuscular Volume 83.3 fL (80.0-98.0); Mean Platelet Volume 10.4 fL (9.4-12.3); Monocytes Absolute Auto 0.6 X10*3/uL (0.1-1.2); Monocytes Percent Auto 9.1 % (2-11); Neutrophils Percent Auto 72.3 % (45-73); Platelet Count 225 X10*3/uL (160-400); Red Blood Count 4.07 X10*6/uL (4.20-5.50); Red Cell Distribution Width 13.9 % (11.0-16.0)
[2024-08-11] MEDS: Ketorolac Tromethamine 30 MG/ML VIAL IVPUSH (23:17)
[2024-08-11] MEDS: ondansetron HCL 4 MG/2 ML VIAL IVPUSH (23:17)
[2024-08-11] MEDS: Morphine Sulfate 4 MG/ML CARTRIDGE IVPUSH (23:18)
[2024-08-11] MEDS: 0.9 % Sodium Chloride 1,000 ML 999 ML IV (23:19)
[2024-08-11 23:37] LABS: Alanine Aminotransferase 19 U/L (0-31); Albumin Level 4.3 g/dL (3.5-5.0); Alkaline Phosphatase 78 U/L (39-117); Anion Gap 11 (12-20); Aspartate Amino Transferase 27 U/L (5-31); Bilirubin Total 0.3 mg/dL (0.0-1.0); Blood Urea Nitrogen 16 mg/dL (9-16); Calcium 9.1 mg/dL (8.4-10.2); Carbon Dioxide 22 mmol/L (22-29); Chloride 109 mmol/L (96-108); Creatinine Clr Calc Pharmacy 107.9; Estimated Glomerular Filt Rate > 60; Glucose Random 108 mg/dL (60-115); HCG Quantitative < 2 mIU/mL; Potassium 3.9 mmol/L (3.3-5.1); Sodium 138 mmol/L (135-145); Total Protein 7.5 g/dL (6.5-8.0)
[2024-08-12 00:19] VITALS: BP 93/60; PULSE 53; TEMP 36.6; O2SAT 98
[2024-08-12 00:33] LABS: Appearance Urine Clear; Color Urine Yellow; Glucose Urine UA Negative (Negative); Leukocyte Esterase Urine Negative (Negative); Nitrite Urine Negative (Negative); PH 6.5 (5.0-9.0); Specific Gravity - Urine >= 1.030 (1.005-1.025); UMIC TRIGGER UACC YES; Urine Blood Negative (Negative); Urine Ketones Trace mg/dL (Negative); Urine Protein 30 (1+) mg/dL (Neg-Trace)
[2024-08-12 00:36] LABS: Bacteria Urine None Seen (None Seen); Hyaline Casts Urine 0-2 /LPF (0-2); RBC Urine 0-2 /HPF (0-2); Squamous Epithelial Cell Urine 0-2 /HPF (0-2); WBC Urine 0-5 /HPF (0-5)
[2024-08-12 01:56] VITALS: BP 118/63; PULSE 61; RESP 14; TEMP 36.9; O2SAT 96
[2024-08-12] MEDS: bisacodyL 5 MG TABLET.DR 10 MG PO (02:05)
[2024-08-12] MEDS: Milk of Magnesia 30 ML ORAL.SUSP PO (02:05)
[2024-08-12 02:13] VITALS: BP 118/63; PULSE 61; RESP 14; TEMP 36.9; O2SAT 96
== END 2024-08-12 02:14 | disposition home or self-care (01) ==
PROVIDERS: Emergency Provider Internal Medicine; PCP Internal Medicine
DX: K59.00 Constipation, unspecified (principal); R10.31 Right lower quadrant pain; R11.0 Nausea
CPT/HCPCS: 36415; 74176; 80053; 81001; 84702; 85025; 96361; 96374; 96375; 99285; J1885; J2270; J2405

== ENCOUNTER → 2024-08-12 | Outpatient (BNV) | payer OTHER, MEDICAID, SELFPAY | PROVIDERS: Emergency Provider Internal Medicine; PCP Internal Medicine; Visit Provider Radiology Diagnostic Radiology | DX: R10.9 Unspecified abdominal pain (principal) | CPT/HCPCS: 74176 ==

== ENCOUNTER 2024-10-07 03:26 | Emergency (ER) | payer OTHER, SELFPAY ==
[2024-10-07 03:32] VITALS: BP 129/94; PULSE 70; RESP 20; TEMP 36.6; O2SAT 98; BMI 30.7
[2024-10-07 04:08] VITALS: BP 129/94; PULSE 70; RESP 20; TEMP 36.6; O2SAT 98
--- NOTE | 2024-10-07 07:11 | ED.BACK ---
HPI - Back Pain/Injury General Chief Complaint: Back Pain/Injury Stated Complaint: body pain Time Seen by Provider: 10/07/24 06:42 Source: patient Mode of arrival: ambulatory Limitations: no limitations History of Present Illness ED Provider: Dr. Yaya Baker HPI Narrative: 34-year-old female with history of asthma, lupus, CORAL positive who presents emergency department for evaluation back pain. The patient states she has been experiencing back pain since the of her child 13 months prior. She states that when she was 3 months she had discoloration of her toes which led to the diagnosis of lupus and being in a positive. At that time she was started on hydrochloroquine. She states that she had a and after delivery she developed back pain. She states she also stops hydrochloroquine after delivery And has not followed up with the ruching machine operator. She states that once or twice a month she has been getting back pain which describes as a breaking sensation in her entire spine. She states that yesterday at around 17:00 hours she developed this severe pain throughout her entire back. She took 1600 mg of ibuprofen with no relief for discomfort. She denied numbness or weakness of her lower extremities. She denied loss of bowel or bladder control. She denied fever, chills, cough, chest pain or shortness of breath. She states she does have a follow-up appointment with her ruching machine operator in the next month. Related Data Previous Rx's ?Medication ?Instructions ?Recorded hydroxychloroquine 200 mg tablet 200 mg PO BID #180 tabs 12/28/22 polyethylene glycol 3350 17 17 g PO DAILY #510 grams 08/12/24 gram/dose oral powder (Miralax) cyclobenzaprine 10 mg tablet 10 mg PO TID PRN muscle pain or 10/07/24 spasm #20 tabs Allergies Allergy/AdvReac Type Severity Reaction Status Date / Time No Known Allergies Allergy Verified 10/07/24 03:34 Review of Systems Review of Systems: Yes all other systems are reviewed and are negative [facility] Past Medical History [facility] Narrative: Social history: She denies tobacco, alcohol and drug use. Medical History Lupus (systemic lupus erythematosus) Peritonitis Surgical History History of delivery History of removal of cyst H/O wisdom tooth extraction History of tonsillectomy Family History Family History Mother SLE (systemic lupus erythematosus) Osteoarthritis Father Rheumatoid arthritis Anxiety and depression Social History Social History Housing: House Alcohol intake: current Alcohol intake frequency: does not drink Patient Tobacco Use Status: Never used Tobacco Tobacco use type: Cigarette Smoked in Last 30 Days: No e-Cigarette/Vaping Use: Never Used Second Hand Smoke Exposure: No Use of substances other than those prescribed or required for medical reasons: No Substance Use Type: Marijuana Advance Directives: No Advance Directives Information Provided: No Do you have a plan to hurt others: No Plan Patient : No service: No Current occupational status: employed 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 Cognitive needs: No Hearing needs: No Vision needs: No Physical Exam Vital Signs: Vital Signs: Last Vital Signs Temp 98.4 F 10/07/24 07:56 Pulse 76 10/07/24 07:56 Resp 16 10/07/24 07:56 BP 104/66 10/07/24 07:56 Pulse Ox 99 10/07/24 07:56 O2 Del Method Room Air 10/07/24 07:56 BMI result Body Mass Index 30.7 Vital signs were normal Exam: General: Awake, alert in no distress Head: Normocephalic, atraumatic EENT: PERRL, Lids normal, sclera normal, conjunctiva normal, nose normal , ears normal, throat without erythema or exudates Neck: Supple, no adenopathy Lung: breath sounds symmetric, no wheezing, rales or rhonchi Chest: symmetric movement, nontender Heart: regular rate and rhythm, normal S1, S2 no murmurs or rubs Abdomen: soft, non-tender, nondistended, normal bowel sounds Back: patient has tenderness with palpation over her thoracic lumbar and sacral vertebrae with no localizing point tenderness, she has tenderness palpation of the paraspinal thoracic muscles in her lumbar and sacral spine area. There is no erythema increased warmth to her skin. No lesions noted on her skin. Extremities: no deformities, moves all extremities symmetrically Neuro: Awake, alert, oriented, normal speech, cranial nerves intact, moves all extremities symmetrically Psych: Pleasant, cooperative Medical Decision Making Medical Decision Making MDM Narrative: 34-year-old female with history of asthma, lupus, CORAL positive who presents emergency department for evaluation back pain. The patient states she has been experiencing back pain since the of her child 13 months prior. She states that when she was 3 months she had discoloration of her toes which led to the diagnosis of lupus and being in a positive. At that time she was started on hydrochloroquine. She states that she had a and after delivery she developed back pain. She states she also stops hydrochloroquine after delivery And has not followed up with the ruching machine operator. She states that once or twice a month she has been getting back pain which describes as a breaking sensation in her entire spine. She states that yesterday at around 17:00 hours she developed this severe pain throughout her entire back. She took 1600 mg of ibuprofen with no relief for discomfort. She denied numbness or weakness of her lower extremities. She denied loss of bowel or bladder control. She denied fever, chills, cough, chest pain or shortness of breath.Vital signs were normal. Physical examination revealed tenderness palpation of her thoracic, lumbar and sacral vertebrae as well as tenderness palpation of her paraspinal muscles in the lumbar sacral region with no increased warmth, erythema or lesions noted. Differential diagnosis: Includes but is not limited to Musculoskeletal injury, skull, spasm, disc disease, joint disease, rheumatologic disease ( lupus flare up ), anemia, electrolyte abnormalities Course: My independent interpretation the patient's laboratory evaluation is as follows: Normocytic anemia with an H&H of 10.9 and 32.4. White blood cell count was normal 5700. CMP was normal. ESR was only slightly elevated 27. CRP was normal at 0.22. TSH was normal. Quantitative beta hCG was below detectable limits. Given her relatively normal inflammatory markers , I do not think the patient has a lupus flare-up however lupus may be playing a part in her pain and I did discuss this with her. I did tell her that 1600 mg of ibuprofen is too high of a dose and cause significant side effects such as gastritis or peptic ulcers. Patient was advised to take ibuprofen 400 mg q.6 hours as needed for pain, Tylenol 1000 mg q.6 hours as needed for pain and she was prescribed Flexeril 10 mg Q 6-8 hours as needed for pain or spasm. The patient was given printed and verbal instructions and discharged home. I did emphasize the importance of following up with her ruching machine operator to determine if she needs to be back on hydrochloroquine to see if this improves her back pain. Admission/Observation Consideration of admission/observation: Escalation of care including admission/observation considered ( yes) Lab Data MDM Lab Attestation statement: I reviewed the patient's lab results. 10/07/24 07:45 10/07/24 07:45 Labs: Lab Results 10/07/24 Range/Units 07:45 WBC 5.7 (4.8-10.8) X10*3/uL RBC 3.88 L (4.20-5.50) X10*6/uL Hgb 10.9 L (12.0-16.0) g/dl Hct 32.4 L (37.0-47.0) % MCV 83.5 (80.0-98.0) fL MCH 28.1 (27.0-33.0) pg MCHC 33.6 (31.0-35.0) g/dl RDW 13.5 (11.0-16.0) % Plt Count 251 (160-400) X10*3/uL MPV 10.3 (9.4-12.3) fL Immature Gran % (Auto) 0.4 (0.0-0.4) % Neut % (Auto) 64.8 (45-73) % Lymph % (Auto) 20.2 (20-40) % [place] % (Auto) 13.2 H (2-11) % Eos % (Auto) 1.2 (0-4) % Baso % (Auto) 0.2 (0-2) % Lymph # (Auto) 1.2 (1.2-4.9) X10*3/uL [place] # (Auto) 0.8 (0.1-1.2) X10*3/uL Eos # (Auto) 0.1 (0.0-0.4) X10*3/uL Baso # (Auto) 0.0 (0.0-0.2) X10*3/uL Abs Immat Gran (auto) 0.02 (0.00-0.03) X10*3/uL Absolute Neuts (auto) 3.7 (2.0-8.3) x10*3/uL Absolute Nucleated RBC 0.000 (0.0-0.012) X10*3/uL Nucleated RBC % (auto) 0.0 (0.0-0.2) /100WBC ESR 27 H (0-20) MM/HR Sodium 137 (135-145) mmol/L Potassium 4.0 (3.3-5.1) mmol/L Chloride 106 (96-108) mmol/L Carbon Dioxide 26 (22-29) mmol/L Anion Gap 9 L (12-20) BUN 18 H (9-16) mg/dL Creatinine 0.68 (0.5-1.4) mg/dL Estim Creat Clear Calc 117.8 Estimated GFR > 60 Random Glucose 98 (60-115) mg/dL Calcium 9.4 (8.4-10.2) mg/dL Magnesium 1.8 (1.6-2.6) mg/dL Total Bilirubin 0.3 (0.0-1.0) mg/dL AST 25 (5-31) U/L ALT 17 (0-31) U/L Alkaline Phosphatase 79 (39-117) U/L C-Reactive Protein 0.22 (< or = 0.50) mg/dL Total Protein 7.7 (6.5-8.0) g/dL Albumin 4.3 (3.5-5.0) g/dL TSH 1.68 (0.32-4.0) uIU/mL Beta HCG, Quant < 2 mIU/mL Prescription Management I considered prescription management with: Other ( anti muscle spasm medication: Flexeril) Chronic Conditions Patient?s care impacted by: Other ( lupus) Discharge Plan Discharge Clinical Impression: Lumbar back pain Patient Disposition: Home, Self-Care Instructions: Acute Low Back Pain (ED) Additional Instructions: At this time, I believe that your back pain may be related to her lupus or may just be due to inflammation of the muscles and joints of your back. Take ibuprofen 200 mg pills, 2 pills every 6 hours as needed for pain or fever. Take Tylenol (acetaminophen) 500 mg pills, 2 pills every 6 hours as needed for pain or fever. Take Flexeril (cyclobenzaprine) 10 mg pills, 1 pill every 6-8 hours as needed for pain or spasm. ?This medication will make you sleepy. ?Do not drive or work while taking this medication. I did a CBC, CMP, TSH (thyroid tests), ESR and CRP on you. I will call you later today and discuss these results with the you when they come back. Follow-up with your doctor in 2 days. Please return to the emergency department if your symptoms get worse or if you develop any symptoms that are concerning to you. Prescriptions: New cyclobenzaprine 10 mg tablet 10 mg PO TID PRN (Reason: muscle pain or spasm) Qty: 20 0RF No Action polyethylene glycol 3350 [Miralax] 17 gram/dose powder 17 g PO DAILY Qty: 510 0RF hydroxychloroquine 200 mg tablet 200 mg PO BID Qty: 180 1RF Interventions: ED Discharge Assessment Last Done: 10/07/24 07:56 Discharge Date/Time: 10/07/24 07:57 Print Language: Grenadian
[2024-10-07 07:37] VITALS: BP 104/66; PULSE 76; RESP 16; TEMP 36.9; O2SAT 99
[2024-10-07 07:55] LABS: MANUAL DIFF FLAG NO
[2024-10-07 07:56] VITALS: BP 104/66; PULSE 76; RESP 16; TEMP 36.9; O2SAT 99
[2024-10-07 07:58] LABS: Basophils Percent Auto 0.2 % (0-2); Eosinophils Absolute Auto 0.1 X10*3/uL (0.0-0.4); Eosinophils Percent Auto 1.2 % (0-4); Hematocrit 32.4 % (37.0-47.0); Hemoglobin 10.9 g/dl (12.0-16.0); Imm Gran Abs Auto 0.02 X10*3/uL (0.00-0.03); Imm Gran Pct Auto 0.4 % (0.0-0.4); Lymphocytes Absolute Auto 1.2 X10*3/uL (1.2-4.9); Lymphocytes Percent Auto 20.2 % (20-40); Mean Corpuscular HGB Conc 33.6 g/dl (31.0-35.0); Mean Corpuscular Hemoglobin 28.1 pg (27.0-33.0); Mean Corpuscular Volume 83.5 fL (80.0-98.0); Mean Platelet Volume 10.3 fL (9.4-12.3); Monocytes Absolute Auto 0.8 X10*3/uL (0.1-1.2); Monocytes Percent Auto 13.2 % (2-11); Neutrophils Absolute Auto 3.7 x10*3/uL (2.0-8.3); Neutrophils Percent Auto 64.8 % (45-73); Platelet Count 251 X10*3/uL (160-400); Red Blood Count 3.88 X10*6/uL (4.20-5.50); Red Cell Distribution Width 13.5 % (11.0-16.0); White Blood Count 5.7 X10*3/uL (4.8-10.8)
[2024-10-07 08:21] LABS: Alanine Aminotransferase 17 U/L (0-31); Albumin Level 4.3 g/dL (3.5-5.0); Alkaline Phosphatase 79 U/L (39-117); Anion Gap 9 (12-20); Aspartate Amino Transferase 25 U/L (5-31); Bilirubin Total 0.3 mg/dL (0.0-1.0); Blood Urea Nitrogen 18 mg/dL (9-16); Calcium 9.4 mg/dL (8.4-10.2); Carbon Dioxide 26 mmol/L (22-29); Chloride 106 mmol/L (96-108); Creatinine Clr Calc Pharmacy 117.8; Estimated Glomerular Filt Rate > 60; Glucose Random 98 mg/dL (60-115); Magnesium 1.8 mg/dL (1.6-2.6); Sodium 137 mmol/L (135-145); Total Protein 7.7 g/dL (6.5-8.0)
[2024-10-07 08:36] LABS: Erythrocyte Sedimentation Rate 27 MM/HR (0-20); HCG Quantitative < 2 mIU/mL; TSH reflex Free T4 1.68 uIU/mL (0.32-4.0)
[2024-10-07 10:47] LABS: C Reactive Protein 0.22 mg/dL (< or = 0.50)
== END 2024-10-07 07:57 | disposition home or self-care (01) ==
PROVIDERS: Emergency Provider Emergency Medicine Emergency Medical Services; PCP Internal Medicine
DX: M54.50 Low back pain, unspecified (principal); M32.9 Systemic lupus erythematosus, unspecified; Z79.899 Other long term (current) drug therapy
CPT/HCPCS: 36415; 80053; 83735; 84443; 84702; 85025; 85652; 86140; 99283; 99284

== ENCOUNTER 2024-11-17 20:41 | Emergency (ER) | payer OTHER, SELFPAY ==
--- NOTE | 2024-11-17 | ECG_ITS ---
Test Reason : BACK PAIN RAD. TO ABD Blood Pressure : */* mmHG Vent. Rate : 67 BPM Atrial Rate : 67 BPM P-R Int : 138 ms QRS Dur : 82 ms QT Int : 412 ms P-R-T Axes : 46 63 31 degrees QTcB Int : 435 ms Normal sinus rhythm Normal ECG No previous ECGs available Referred By: Generic ED Physician Electronically Signed By: SUJATA MCKEON MD
--- NOTE | ~2024-11-17 | CT_ITS ---
CLINICAL HISTORY: right flank pain CT abdomen and pelvis without contrast Comparison: CT/SR - CT ABDOMEN PELVIS WO IV CON - 08/12/24 00:36 EDT Findings: The lung bases are clear. Unremarkable gallbladder and solid organs. No urolithiasis. No bowel obstruction, pneumoperitoneum, or pneumatosis. In the left perirectal region there is a 3.4 x 2.6 x 5.25 cm complex fluid density structure measuring 17 Hounsfield units extending inferiorly /superficially and medially, Grossly stable since the prior exam. The appendix is not visualized. Visualized pelvic structures are within normal limits No acute fracture. IMPRESSION: 1. Left perirectal complex fluid density structure measuring 3.4 x 2.6 x 5.25 cm of unclear etiology, grossly unchanged since the prior exam. Please correlate clinically. 2. Otherwise unremarkable CT abdomen and pelvis as above. This document has been electronically signed by: Ludwig Vela MD, PHD on 11/18/2024 01:19:59
[2024-11-17 20:47] VITALS: BP 122/72; PULSE 66; RESP 18; TEMP 36.8; O2SAT 100; BMI 30.5
--- NOTE | 2024-11-17 20:50 | ED_ITS ---
HPI - General Adult General Chief complaint: General Medical Stated complaint: back muscle pain going into abd Time Seen by Provider: 11/17/24 23:13 Source: patient Limitations: no limitations History of Present Illness ED Provider: Kamila Sandhu PA-C HPI narrative: 33-year-old female with a history of lupus, asthma, chronic back pain who presents with back pain. Patient states she is having low back pain that radiates to her abdomen. Her symptoms began earlier today. She has a muscle relaxant at home, it has been ineffective. Denies radiation of pain down either extremity, urinary retention, bowel incontinence, weakness of lower extremities, paresthesia. Denies dysuria, hematuria or history of kidney stones. Denies nausea vomiting diarrhea. Related Data Home Medications ?Medication ?Instructions ?Recorded ?Confirmed ferrous sulfate 325 mg (65 mg 325 mg PO DAILY 11/21/24 iron) tablet Previous Rx's ?Medication ?Instructions ?Recorded cyclobenzaprine 10 mg tablet 10 mg PO TID PRN muscle p ain or 10/07/24 spasm #20 tabs ketorolac 10 mg tablet 10 mg PO Q6H PRN pain #20 ta bs 11/18/24 methocarbamol 750 mg tablet 750 mg PO Q8H PRN pain, mo derate 11/18/24 #15 tabs methylprednisolone 4 mg tablets in 4 mg PO QAM #21 ea 11/18/24 a dose pack (Medrol (Terry)) Allergies Allergy/AdvReac Type Severity Reaction Status Date / Time No Known Allergies Allergy Verified 11/21/24 13:35 Review of Systems 2 Review of Systems: Yes all other systems are reviewed and are negative Constitutional: Constitutional: Denies fatigue and Denies fever(s) Cardiovascular: Cardiovascular: Denies chest pain and Denies dyspnea Respiratory: Respiratory: Denies cough and Denies dyspnea Gastrointestinal: Gastrointestinal: Reports abdominal pain, Denies diarrhea, Denies nausea and Denies vomiting Genitourinary: Genitourinary: Denies hematuria and Denies dysuria Musculoskeletal: Musculoskeletal: Reports back pain, Denies muscle weakness, Denies numbness, Denies radiating pain into limb and Denies tingling Neurologic: Denies numbness and Denies tingling Endocrine: Endocrine: Denies fatigue PMF Past Medical History Attestation statement: The following information was validated with the patient. Medical History (Updated 11/21/24 @ 14:13 by Cullen Ram MD) Low back pain Alopecia areata Lupus (systemic lupus erythematosus) Peritonitis Surgical History History of delivery History of removal of cyst H/O wisdom tooth extraction History of tonsillectomy Family History Family History Mother SLE (systemic lupus erythematosus) Osteoarthritis Father Rheumatoid arthritis Anxiety and depression Social History Social History Housing: House Alcohol intake: current Alcohol intake frequency: does not drink Patient Tobacco Use Status: Never used Tobacco Tobacco use type: Cigarette e-Cigarette/Vaping Use: Never Used Second Hand Smoke Exposure: No Substance Use Type: Marijuana service: No Current occupational status: employed 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 Cognitive needs: No Hearing needs: No Vision needs: No Physical Exam ED Vital Signs: Vital Signs - 24 hr 11/17/24 20:47 11/18/24 01:42 11/18/24 03:38 Temperature 98.2 F 97.3 F 98 F Pulse Rate 66 50 62 Respiratory Rate 18 16 16 Blood Pressure 122/72 100/69 104/72 Pulse Oximetry 100 100 98 Oxygen Delivery Method Room Air Room Air Room Air BMI result Body Mass Index 30.5 Const Other: Alert well-appearing Orientation/consciousness: patient oriented x3 Resp Effort & Inspection: normal respiratory effort Cardio Other: Normal peripheral perfusion General: Yes CVA tenderness Back/Spine/Pelvis Back: CVA tenderness Skin Other: Warm dry no rash Neuro General: patient oriented x3, gait normal, no focal motor deficits and CN's II- XI intact bilaterally Psych Other: Cooperative Course Course Course Narrative: RME: 33-year-old female presents to ED for back pain radiating to the epigastric area with some nausea. Patient denies any genitourinary symptoms. Labs EKG UA ordered Reevaluation(s) Reevaluation #1: The CT scan revealed a chronic left perirectal complex fluid density, I asked the patient if she is having rectal pain or swelling over the buttock, she denies, no rectal discharge in the way of blood or pus. Medications Administered Discontinued Medications Generic Name Dose Route Start Last Admin Trade Name Freq PRN Reason Stop Dose Admin Dexamethasone Sodium Phosphate 10 mg 11/18/24 00:00 11/18/24 00:24 Dexamethasone Sod Phosphate 10 Mg/Ml Vial IVPUSH 11/18/24 00:01 10 mg ONCE ONE Administration Sodium Chloride 1,000 mls @ 999 mls/hr 11/18/24 00:00 11/18/24 01:30 Ns IV 11/18/24 01:00 Infused .Q1H1M JESSICA Infusion Ketorolac Tromethamine 15 mg 11/18/24 00:00 11/18/24 00:24 Ketorolac Tromethamine 15 Mg/Ml Vial IVPUSH 11/18/24 00:01 15 mg ONCE ONE Administration Medical Decision Making Medical Decision Making [facility] Narrative: 33-year-old female with a history of lupus, asthma, chronic back pain who presents with back pain. Patient states she is having low back pain that radiates to her abdomen. Her symptoms began earlier today. She has a muscle relaxant at home, it has been ineffective. Denies radiation of pain down either extremity, urinary retention, bowel incontinence, weakness of lower extremities, paresthesia. Denies dysuria, hematuria or history of kidney stones. Denies nausea vomiting diarrhea. Problem: Lupus, chronic pain History: Per patient I have considered the following differential diagnoses: Lupus flare, renal colic, lumbar strain, lumbar radiculopathy, cauda equina, pyelonephritis Plan: Patient is having low back/flank pain radiating to the abdomen, this could be renal colic, we will obtain a CT scan, her pain seems out of proportion with her exam. Thought about UTI and pyelonephritis, she does have technical CVA tenderness, however her urine is not infected. We will be giving fluid and analgesia. Thought about lumbar strain, however she has no mechanism, the pain is not radicular, and she has no red flag signs symptoms concerning for cord compression. I have independently reviewed the following tests: Labs: No leukocytosis, not anemic, no electrolyte abnormality, inflammatory markers not elevated, urine not infected, not , CT abdomen and pelvis:Findings: The lung bases are clear. Unremarkable gallbladder and solid organs. No urolithiasis. No bowel obstruction, pneumoperitoneum, or pneumatosis. In the left perirectal region there is a 3.4 x 2.6 x 5.25 cm complex fluid density structure measuring 17 Hounsfield units extending inferiorly /superficially and medially, Grossly stable since the prior exam. The appendix is not visualized. Visualized pelvic structures are within normal limits No acute fracture. IMPRESSION: 1. Left perirectal complex fluid density structure measuring 3.4 x 2.6 x 5.25 cm of unclear etiology, grossly unchanged since the prior exam. Please correlate clinically. 2. Otherwise unremarkable CT abdomen and pelvis as above. Lab Data 11/17/24 20:59 11/17/24 20:59 Labs: Lab Results 11/17/24 11/17/24 Range/Units 20:59 23:00 WBC 6.2 (4.8-10.8) X10*3/uL RBC 3.66 L (4.20-5.50) X10*6/uL Hgb 10.1 L (12.0-16.0) g/dl Hct 31.5 L (37.0-47.0) % MCV 86.1 (80.0-98.0) fL MCH 27.6 (27.0-33.0) pg MCHC 32.1 (31.0-35.0) g/dl RDW 14.6 (11.0-16.0) % Plt Count 257 (160-400) X10*3/uL MPV 10.5 (9.4-12.3) fL Immature Gran % (Auto) 0.2 (0.0-0.4) % Neut % (Auto) 65.1 (45-73) % Lymph % (Auto) 23.8 (20-40) % [place] % (Auto) 9.2 (2-11) % Eos % (Auto) 1.5 (0-4) % Baso % (Auto) 0.2 (0-2) % Lymph # (Auto) 1.5 (1.2-4.9) X10*3/uL [place] # (Auto) 0.6 (0.1-1.2) X10*3/uL Eos # (Auto) 0.1 (0.0-0.4) X10*3/uL Baso # (Auto) 0.0 (0.0-0.2) X10*3/uL Abs Immat Gran (auto) 0.01 (0.00-0.03) X10*3/uL Absolute Neuts (auto) 4.0 (2.0-8.3) x10*3/uL Absolute Nucleated RBC 0.000 (0.0-0.012) X10*3/uL Nucleated RBC % (auto) 0.0 (0.0-0.2) /100WBC Sodium 141 (135-145) mmol/L Potassium 3.6 (3.3-5.1) mmol/L Chloride 110 H (96-108) mmol/L Carbon Dioxide 24 (22-29) mmol/L Anion Gap 11 L (12-20) BUN 14 (9-16) mg/dL Creatinine 0.69 (0.5-1.4) mg/dL Estim Creat Clear Calc 115.7 Estimated GFR > 60 Random Glucose 112 (60-115) mg/dL Calcium 8.9 (8.4-10.2) mg/dL Total Bilirubin 0.4 (0.0-1.0) mg/dL AST 29 (5-31) U/L ALT 16 (0-31) U/L Alkaline Phosphatase 65 (39-117) U/L Troponin I High Sens < 2.7 (<3.5-17.0) ng/L Total Protein 7.4 (6.5-8.0) g/dL Albumin 4.3 (3.5-5.0) g/dL Lipase 21 (8-78) U/L Beta HCG, Quant < 2 mIU/mL Urine Color Yellow Urine Appearance Clear Urine pH 6.0 (5.0-9.0) Ur Specific [place] >= 1.030 H (1.005-1.025) Urine Protein Negative (Neg-Trace) mg/dL Urine Glucose (UA) Negative (Negative) mg/dL Urine Ketones Trace (Negative) mg/dL Urine Blood Negative (Negative) Urine Nitrite Negative (Negative) Ur Leukocyte Esterase Negative (Negative) Discharge Plan Discharge Clinical Impression: Back pain Lupus (systemic lupus erythematosus) Qualifiers: Systemic lupus erythematosus type: unspecified Systemic lupus erythematosus organ involvement: other Qualified Code(s): M32.19 - Other organ or system involvement in systemic lupus erythematosus Patient Disposition: Home, Self-Care Instructions: Back Pain (ED) Additional Instructions: You had no lab abnormalities, there were no acute findings on the CT scan. I do believe your pain is secondary to a lupus flare. See home care instructions. Use the steroid taper as directed, take the ketorolac as directed, for your pain. Do not take any Naprosyn or ibuprofen while taking the ketorolac. Keep your pending follow up with your underground heavy equipment operator scheduled for this December. Prescriptions: New ketorolac 10 mg tablet 10 mg PO Q6H PRN (Reason: pain) Qty: 20 0RF Rx Instructions: maximum total duration of 5 days from all oral, intranasal, or parenteral formulations, the patient had an IV dose of Toradol here in the emergency room methylprednisolone [Medrol (Terry)] 4 mg tablets,dose pack 4 mg PO QAM Qty: 21 0RF Rx Instructions: Take per package instructions methocarbamol 750 mg tablet 750 mg PO Q8H PRN (Reason: pain, moderate) Qty: 15 0RF No Action cyclobenzaprine 10 mg tablet 10 mg PO TID PRN (Reason: muscle pain or spasm) Qty: 20 0RF ferrous sulfate 325 mg (65 mg iron) tablet 325 mg PO DAILY Interventions: ED Discharge Assessment Last Done: 11/18/24 03:38 Discharge Date/Time: 11/18/24 03:43 Print Language: [place]
[2024-11-17 21:04] LABS: MANUAL DIFF FLAG NO
[2024-11-17 21:05] LABS: Hematocrit 31.5 % (37.0-47.0); Hemoglobin 10.1 g/dl (12.0-16.0); Imm Gran Abs Auto 0.01 X10*3/uL (0.00-0.03); Imm Gran Pct Auto 0.2 % (0.0-0.4); Lymphocytes Absolute Auto 1.5 X10*3/uL (1.2-4.9); Mean Corpuscular HGB Conc 32.1 g/dl (31.0-35.0); Mean Corpuscular Hemoglobin 27.6 pg (27.0-33.0); Mean Corpuscular Volume 86.1 fL (80.0-98.0); NRBC Abs Auto 0.000 X10*3/uL (0.0-0.012); NRBC Pct Auto 0.0 /100WBC (0.0-0.2); Platelet Count 257 X10*3/uL (160-400); Red Blood Count 3.66 X10*6/uL (4.20-5.50); White Blood Count 6.2 X10*3/uL (4.8-10.8)
[2024-11-17 21:26] LABS: Alanine Aminotransferase 16 U/L (0-31); Albumin Level 4.3 g/dL (3.5-5.0); Alkaline Phosphatase 65 U/L (39-117); Anion Gap 11 (12-20); Aspartate Amino Transferase 29 U/L (5-31); Blood Urea Nitrogen 14 mg/dL (9-16); Calcium 8.9 mg/dL (8.4-10.2); Carbon Dioxide 24 mmol/L (22-29); Chloride 110 mmol/L (96-108); Creatinine Clr Calc Pharmacy 115.7; Estimated Glomerular Filt Rate > 60; Lipase 21 U/L (8-78); Potassium 3.6 mmol/L (3.3-5.1); Sodium 141 mmol/L (135-145); Total Protein 7.4 g/dL (6.5-8.0)
[2024-11-17 21:31] LABS: Troponin-I High Sensitivity < 2.7 ng/L (<3.5-17.0)
[2024-11-17 23:07] LABS: Appearance Urine Clear; Glucose Urine UA Negative (Negative); PH 6.0 (5.0-9.0); Specific Gravity - Urine >= 1.030 (1.005-1.025)
[2024-11-18 01:42] VITALS: BP 100/69; PULSE 50; RESP 16; TEMP 36.3; O2SAT 100
[2024-11-18 03:38] VITALS: BP 104/72; PULSE 62; RESP 16; TEMP 36.6; O2SAT 98
== END 2024-11-18 03:43 | disposition home or self-care (01) ==
PROVIDERS: Physician Assistant; Emergency Provider Emergency Medicine; PCP Internal Medicine
DX: M32.19 Other organ or system involvement in systemic lupus erythematosus (principal); M54.50 Low back pain, unspecified; R10.2 Pelvic and perineal pain; R10.13 Epigastric pain; R11.0 Nausea; Z79.899 Other long term (current) drug therapy
CPT/HCPCS: 36415; 74176; 80053; 81003; 83690; 84484; 84702; 85025; 93005; 96361; 96374; 96375; 99284; J1100; J1885

== ENCOUNTER → 2024-11-17 20:51 | Outpatient (BNV) | payer OTHER, SELFPAY | PROVIDERS: Emergency Provider Emergency Medicine; PCP Internal Medicine; Visit Provider Internal Medicine Cardiovascular Disease | DX: M54.9 Dorsalgia, unspecified (principal) | CPT/HCPCS: 93010 ==

== ENCOUNTER → 2024-11-18 | Outpatient (BNV) | payer OTHER, SELFPAY | PROVIDERS: PCP Internal Medicine; Visit Provider General Practice | DX: R10.31 Right lower quadrant pain (principal) | CPT/HCPCS: 74176 ==

== ENCOUNTER 2024-11-21 13:25 | Outpatient (AMB) | payer OTHER, SELFPAY ==
--- NOTE | 2024-11-21 13:33 | MHC.PC.OV ---
Vital Signs 11/21/24 13:35 Height 5 ft 3 in Weight 170 lb 4 oz BMI 30.2 BP 110/70 Blood Pressure Location Lt brachial Position Sitting Pulse 64 Pulse Source Pulse Oximeter Temp 97.1 F Temp Source Temporal Artery Scan Pulse Oximetry (%) 99 Oxygen Delivery Method Room Air Intake Visit Reasons: Hair loss concerns Intake Note: Patient is here to follow up on Hair loss concerns and Lupus flare up. 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: Not Required per policy Accompanied by: Self / Same As Patient Allergies No Known Allergies Allergy (Verified 11/21/24 13:35) Tobacco use date assessed: 11/21/24 Dental Screening Dental Screen Date: 11/21/24 Did you have a dental visit in the last 12 months?: Yes Did you have a dental problem in the last 6 months where you did not have access to dental care?: No Was dental information given to patient?: Patient has dentist [facility] Medical History (Updated 11/21/24 @ 14:13 by Cullen Ram MD) Low back pain Alopecia areata Lupus (systemic lupus erythematosus) Peritonitis Surgical History History of delivery History of removal of cyst H/O wisdom tooth extraction History of tonsillectomy Family History Mother SLE (systemic lupus erythematosus) Osteoarthritis Father Rheumatoid arthritis Anxiety and depression Social History Housing: House Alcohol intake: current Alcohol intake frequency: does not drink Patient Tobacco Use Status: Never used Tobacco Tobacco use type: Cigarette e-Cigarette/Vaping Use: Never Used Second Hand Smoke Exposure: No Substance Use Type: Marijuana service: No Current occupational status: employed 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 1. Little interest or pleasure in doing things: not at all 2. Feeling down, depressed, or hopeless: not at all 3. Trouble falling or staying asleep, or sleeping too much: not at all 4. Feeling tired or having little energy: not at all 5. Poor appetite or overeating: not at all 6. Feeling bad about yourself - or that you are a failure or have let yourself or your family down: not at all 7. Trouble concentrating on things, such as reading the newspaper or watching television: not at all 8. Moving or speaking so slowly that other people could have noticed. Or the opposite - being so fidgety or restless that you have been moving around a lot more than usual: not at all 9. Thoughts that you would be better off or of hurting yourself in some way: not at all Total score: 0 Depression Screening Interpretation: Negative Depression Screening Done: Yes Source: Developed by Drs. Dre Becker, Bonny Salinas, Jordan Templeton and colleagues, with an educational marciano from [employer]. Thrive Questionnaire Date Thrive assessed: 11/21/24 I am a: Patient What is your living situation today?: I have a steady place to live Within the past 12 months, did the food you bought not last and you didn't have the money to get more?: Never true Within the past 12 months, did you worry whether your food would run out before you got money to buy more?: Never true Do you have trouble paying for medicines?: No Do you have trouble getting transportation to medical appointments?: No Do you have trouble paying your heating and electricity bill?: No Do you have trouble taking care of your child, family member or friend?: No Do you have trouble with day-to-day activities such as bathing, preparing meals, shopping, managing finances, etc.?: No Are you currently unemployed and looking for a job?: No Are you interested in more education?: No Please select the resources that you would like help with: None Currently or been in a relationship where the following occur: No concerns reported THRIVE Score: 0 AUDIT C Alcohol Use Questionnaire (AUDIT-C) 1. How often do you have a drink containing alcohol?: Never Total Score: 0 YESICA-7 AMB Questionnaire YESICA-7 Date YESICA - 7 assessed: 11/21/24 Feeling nervous, anxious, or on edge: 0 = Not at all Not being able to stop or control worryin = Not at all Worrying too much about different things: 0 = Not at all Trouble relaxin = Not at all Being so restless that it is hard to sit still: 0 = Not at all Becoming easily annoyed or irritable: 0 = Not at all Feeling afraid as if something awful might happen: 0 = Not at all Total YESICA-7 score (0-4 normal; 5-9 mild; 10-14 moderate; 15-21 severe): 0 Source: Developed by Drs. Dre Becker, Bonny Salinas, Joradn Templeton and colleagues, with an educational marciano from [employer]. Physical exam (Primary Care) Vital Signs: Last Vital Signs Temp 97.1 F 11/21/24 13:35 Pulse 64 11/21/24 13:35 BP 110/70 11/21/24 13:35 Pulse Ox 99 11/21/24 13:35 Oxygen Delivery Method Room Air 11/21/24 13:35 BMI result Body Mass Index 30.2 Tobacco/Smoking Status: Tobacco use Status Tobacco use date assessed 11/21/24 11/21/24 13:42 Patient Tobacco Use Status Never used Tobacco 11/21/24 13:42 Tobacco use type Cigarette 11/21/24 13:42 e-Cigarette/Vaping Use Never Used 11/21/24 13:42 PHQ-9: PHQ-9 Score PHQ-9: Total score 0 11/21/24 13:42 Depression Screening Interpretation: Negative Thrive Assessment: Date of Thrive Assessment Date Thrive assessed 11/21/24 11/21/24 13:42 Currently or been in a relationship where the following occur: No concerns reported Coding Level of Care Code Est Pt Level 4 (90229) Complex EM visit Add On G2211 Diagnoses Alopecia areata L63.9 Low back pain M54.50 Assessment & Plan Assessment & Plan (1) Alopecia areata: Code(s): L63.9 - Alopecia areata, unspecified Category: Medical Plan: TSH in range. Multifactorial causes. Vitamin supplementation and follow meds from [facility]. Reassurance (2) Low back pain: Code(s): M54.50 - Low back pain, unspecified Category: Medical Plan: CT abd revd again. Trinh rectal fluid collection. Surgical opinion requested. Plan History of Present Illness - The patient is a 33-year-old female presenting with hair loss and back pain. - Hair loss has persisted for five years, worsening after childbirth. - Mild anemia was diagnosed, and treatment with iron and Nutrafol was initiated. - Thyroid function tests were normal. - Back pain is intense, affecting the stomach, and has necessitated emergency care. - The pain is sharp, lasts several hours, and mimics arthritis pain. - Lupus flare-ups were identified as a cause following diagnostic tests. - The patient has a lupus history, with maternal family history of the disease. - Follow-up care was delayed due to family health crises. 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 - Exercise: Engages in CrossFit three to four times a week. Review of Systems - Integumentary: Reports hair loss, primarily on the top of the head. - Musculoskeletal: Reports severe back pain radiating to the stomach, resembling arthritis pain. - Endocrine: Denies thyroid dysfunction. Physical Exam General: Cooperative and healthy appearing Nutritional Appearance: Well nourished Orientation/consciousness: Patient oriented x3 Limitations: No limitations Head: Normal to inspection General: Appearance normal, both eyes and all related structures Neck: Normal visual inspection Chest: Normal palpation of entire chest wall Respiratory: N ormal respiratory effort Neurology: Patient oriented x3, reports sharp back pain that radiates to the stomach, described as arthritis-like pain, lasting for hours and resolving after approximately nine hours. Results - Labs: Mild anemia identified. - Thyroid function tests: Normal results. - Imaging: CT scan conducted, lupus flare-ups identified. Plan 1. Hair Loss - Continue iron supplementation and Nutrafol as prescribed by the treasurer. - Monitor hair loss and reassess in six months. 2. Anemia - Continue iron supplementation. - Re-evaluate hemoglobin levels in follow-up visits. 3. Lupus - Await rheumatology consultation scheduled for December. - Manage symptoms with current medications and monitor for flare-ups. 4. Back Pain - Continue current pain management strategies. - Consider further evaluation if symptoms persist. Discussion Notes During the visit, we discussed the ongoing management of hair loss with iron and Nutrafol supplementation. The patient was advised to continue these treatments and monitor progress over the next six months. We also reviewed the normal thyroid function results and the plan to manage lupus flare-ups with current medications until the rheumatology consultation in December. The patient was informed about the potential causes of back pain and the importance of continuing current pain management strategies. Follow-up care was emphasized, especially in light of the delayed follow-up due to family health issues. Patient Instructions - Continue taking iron supplements and Nutrafol as directed. - Monitor hair loss and report any changes. - Follow up with rheumatology in December for lupus management. - Maintain current pain management strategies for back pain.
[2024-11-21 13:35] VITALS: BP 110/70; PULSE 64; TEMP 36.2; O2SAT 99; BMI 30.2
== END 2024-11-21 14:14 | disposition home or self-care (01) ==
LOC: HO.HMCH 13:26
PROVIDERS: PCP Internal Medicine; Visit Provider Internal Medicine
DX: L63.9 Alopecia areata, unspecified (principal); M54.50 Low back pain, unspecified

== ENCOUNTER → 2024-11-21 13:25 | Outpatient (BNVA) | payer OTHER, SELFPAY | PROVIDERS: PCP Internal Medicine; Visit Provider Internal Medicine | DX: L63.9 Alopecia areata, unspecified (principal); M54.50 Low back pain, unspecified; D64.9 Anemia, unspecified | CPT/HCPCS: 99212 ==

== ENCOUNTER 2025-01-10 07:58 | Outpatient (AMB) | payer OTHER, SELFPAY ==
--- NOTE | 2025-01-10 08:02 | A.OFFVIS_ITS ---
Vital Signs 01/10/25 08:09 Height 5 ft 3 in Weight 172 lb 4 oz BMI 30.5 BP 100/70 Blood Pressure Location Rt brachial Position Sitting Pulse 72 Pulse Source Pulse Oximeter Pulse Oximetry (%) 98 Oxygen Delivery Method Room Air Intake Visit Reasons: follow up Intake Note: Patient presents for Lupus follow up. Allergies No Known Allergies Allergy (Verified 01/10/25 08:07) Medication List - Last Reconciled 01/10/25 by Senia Duckworth MD cyclobenzaprine 10 mg PO TID PRN ferrous sulfate 325 mg PO DAILY ketorolac 10 mg PO Q6H PRN methocarbamol 750 mg PO Q8H PRN HPI Comments Details: Patient is a 34 y.o. female with Alopecia areta and SLE c/b chilblains here today for follow up Interval History: Patient last seen 02/21/[address] Amezquita - On Hydroxychloroquine 200mg bid - 16 weeks - Started on ASA by OB - Intermittent rashes on forehead Today - Self discontinued Hcq - Delivered a healthy baby bot, currently 1 yr and 5 months - Had ED visit x 2 form back vs abdominal pain, resolved with toradol - No pathology seen on CT abd - Complaining of hair loss, following with derm Rheumatologic History: dx 11/2022 (+++CORAL, +++SSa, chillblain's) +RF/+CCP Initial history: This is a 32-year-old female who presents for evaluation of bilateral purple toes. The condition started about 2 years ago. Her toes are pinkish purple, usually throughout the day, worse in the cold and when wet. She also has to wear safety shoes at work which make her pain worse. Wearing comfortable shoes reduce her symptoms. This is associated with sensitivity to touch when her toes are purple. She denies any similar symptoms affecting her fingers. States that she has been losing hair over the last 2 years. Denies any skin rashes. Denies any mouth ulcers or blood or frothy urine. Denies any history of DVT/PE. Patient was once before and had a miscarriage. She just discovered that she is 12 weeks . This is her 2nd . Mentions that her mother has SLE manifested by Raynaud's, joint pain and hair loss. Current Rheumatology Medication(s): [facility] Medical History (Updated 01/10/25 @ 08:48 by Senia Duckworth MD) Low back pain Alopecia areata Lupus (systemic lupus erythematosus) Peritonitis Surgical History History of delivery History of removal of cyst H/O wisdom tooth extraction History of tonsillectomy Family History Mother SLE (systemic lupus erythematosus) Osteoarthritis Father Rheumatoid arthritis Anxiety and depression Social History Housing: House Alcohol intake: current Alcohol intake frequency: does not drink Patient Tobacco Use Status: Never used Tobacco Tobacco use type: Cigarette e-Cigarette/Vaping Use: Never Used Second Hand Smoke Exposure: No Substance Use Type: Marijuana service: No Current occupational status: employed 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 Cognitive needs: No Hearing needs: No Vision needs: No Female Reproductive History Menstrual Age of Menarche: 13 Review of Systems Const Details: Review of Systems Constitutional: Denies fever, chills, weight loss ENT: Denies vision changes, eye pain or eye redness, dental caries, dry mouth GI: Denies nausea, vomiting, diarrhea, abdominal pain, change in BM Pulm: Denies SOB, MÁRQUEZ, hemoptysis, wheezing Cards: Denies chest pain, palpitations Skin: Denies Raynaud's, rash, nail changes, photosensitivity, 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 Well appearing and in no apparent painful distress HEENT Conjunctiva and sclera clear. No lymphadenopathy. No oral or nasal ulcers Hair thinning noted at the crown MSK Hands * Right Hand: Able to make a fist. No swelling or tenderness to palpation of the MCPs, PIPs or DIPs. No deformities noted. * Left Hand: Able to make a fist. No swelling or tenderness to palpation of the MCPs, PIPs or DIPs. No deformities noted. Wrists * Right Wrist: Full ROM to flexion and extension. No swelling or TTP * Left Wrist: Full ROM to flexion and extension. No swelling or TTP Elbows * Right Elbow: Full ROM. No swelling or TTP. No TTP of the medial epicondyle. No TTP of the lateral epicondyle * Left Elbow: Full ROM. No swelling or TTP. No TTP of the medial epicondyle. No TTP of the lateral epicondyle Shoulders * Right shoulder: Full ROM. No swelling noted. No TTP of the AC joint. No TTP of the subacromial bursa. No TTP of the posterior shoulder * Left shoulder: Full ROM. No swelling noted. No TTP of the AC joint. No TTP of the subacromial bursa. No TTP of the posterior shoulder Knees * Right knee: Full ROM. No swelling noted. No TTP of the knee joint line. No TTP of pes anserine bursa * Left knee: Full ROM. No swelling noted. No TTP of the knee joint line. No TTP of pes anserine bursa. Ankles * Right ankle: Good ankle dorsiflexion and plantar flexion. No swelling. No TTP of the ankle joint * Left ankle: Good ankle dorsiflexion and plantar flexion. No swelling. No TTP of the ankle joint Feet * Right foot: Negative squeeze test * Left foot: Negative squeeze test Tender points? * No tenderness to palpation of the bilateral trapezius, supraspinatus, anterior costochondral junctions, bilateral suboccipital muscle insertions Spine * Mild TTP of the SI joint bilaterally SKIN No rashes Vital Signs: Last Vital Signs Pulse 72 01/10/25 08:09 BP 100/70 01/10/25 08:09 Pulse Ox 98 01/10/25 08:09 Oxygen Delivery Method Room Air 01/10/25 08:09 BMI result Body Mass Index 30.5 Results Reviewed Results Reviewed: Laboratory Tests 10/07/24 11/17/24 07:45 20:59 WBC 6.2 RBC 3.66 L Hgb 10.1 L Hct 31.5 L Plt Count 257 ESR 27 H Sodium 141 Potassium 3.6 Chloride 110 H Carbon Dioxide 24 BUN 14 Creatinine 0.69 AST 29 ALT 16 C-Reactive Protein 0.22 Laboratory Tests 09/07/22 12/20/22 02/21/23 06:10 09:35 08:58 Rheumatoid Factor 33.9 H Cycl Citrul Peptide IgG 218 H CORAL Screen POSITIVE A CORAL Titer 1:320 H CORAL Pattern Nuclear, Speckled A SS-A/Ro Antibody >8.0 POS A SS-B/La Antibody <1.0 NEG Sm (Wahl) Antibody <1.0 NEG U1 snRNA A Antibody 13 H U1 snRNA C Antibody <11 U1 snRNA 70kD Antibody <11 SM/COURT SECURITY OFFICER IgG Antibody <1.0 NEG Scl-70 Scleroderma Ab <11 A-PM Scleroderma 75 Ab <11 A-PM Scleroderma 100 Ab <11 Th/To COURT SECURITY OFFICER Ab <11 U3-COURT SECURITY OFFICER (Fibrillarin) Ab <11 RNA Polymerase III RP11 Ab <11 RNA Polymerase III RP155 Ab <11 Centromere B Antibody <11 Centromere Protein A Ab <11 Laboratory Tests 12/20/22 02/21/23 09:35 08:58 Double Strand DNA Ab <1 <1 Complement C3 154 169 Complement C4 26 29 Assessment & Plan Assessment & Plan (1) Lupus (systemic lupus erythematosus): Comment: dx 11/2022 (+++CORAL, +++SSa, chillblain's) Plaquenil 2022 - 2023. Self discontinued post Restarted 12/2024 Code(s): M32.9 - Systemic lupus erythematosus, unspecified Category: Medical Qualifiers: Systemic lupus erythematosus type: unspecified Systemic lupus erythematosus organ involvement: other Qualified Code(s): M32.19 - Other organ or system involvement in systemic lupus erythematosus Plan: #SLE Patient is a 34-year-old female with lupus here today for follow up No evidence of active synovitis on examination. No oral or nasal ulcers and no rash. Complaining of hair loss but this is likely in the setting of and nutritional deficiencies. Seeing Dermatology for this. Recommended that she restart her hydroxychloroquine given her high titers of CORAL, SSA, RF and CCP Plan - Start Hydroxychloroquine 200mg daily - RTC 6 months - Labs before visit: CBC, CMP, ESR, CRP, C3, C4, dsDNA, UA, UPC (2) Low back pain: Code(s): M54.50 - Low back pain, unspecified Category: Medical Qualifiers: Back pain laterality: unspecified Chronicity: chronic Sciatica presence: without sciatica Qualified Code(s): M54.50 - Low back pain, unspecified; G89.29 - Other chronic pain Plan: #Low back pain Patient had to ED visits for back pain that radiated to the abdomen. Abdominal CT scans done did not show any pathology. Symptoms improved with Toradol. Exam she does have some tenderness over the SI joint. We will check SI joint and L- spine films. She can continue Toradol Plan - XR SI joint and L spine (3) Encounter for monitoring of hydroxychloroquine therapy: Code(s): Z51.81 - Encounter for therapeutic drug level monitoring; Z79.899 - Other group home (current) drug therapy Plan: #Long-term Use of Hydroxychloroquine Discussed with patient the risks and benefits of hydroxychloroquine in managing the rheumatic condition Benefits include: - Reduced pain, reduce mortality, maintenance of remission and reduction of flares Risks include: - GI upset, skin hyperpigmentation, retinal toxicity (especially after more than 5 years of use), myopathy Advised yearly ophthalmology visits Plan I spent 30 minutes reviewing the record and labs, taking a history, examining the patient, discussing the treatment plan, ordering diagnostic work up and documenting in the medical record Orders: Orders Complement C3 6 Months M32.9 - Systemic lupus erythematosus, unspecified Protein Creatinine Ratio, Ur 6 Months M32.9 - Systemic lupus erythematosus, unspecified Complete Blood Count Auto Diff 6 Months M32.9 - Systemic lupus erythematosus, unspecified Comprehensive Met. Panel 6 Months M32.9 - Systemic lupus erythematosus, unspecified C Reactive Protein 6 Months M32.9 - Systemic lupus erythematosus, unspecified Erythrocyte Sedimentation Rate 6 Months M32.9 - Systemic lupus erythematosus, unspecified Complement C4 6 Months M32.9 - Systemic lupus erythematosus, unspecified Anti DNA DS Antibody 6 Months M32.9 - Systemic lupus erythematosus, unspecified UA ClnCatch+Micro w/rflx Cult 6 Months M32.9 - Systemic lupus erythematosus, unspecified XR lumbar spine 4V min Today M54.50 - Low back pain, unspecified XR sacroiliac joint min 3V Today M54.50 - Low back pain, unspecified Referrals Ophthalmology Referral M32.19 - Other organ or system involvement in systemic lupus erythematosus Medications: New hydroxychloroquine (Sovuna) 200 mg PO DAILY 90 tabs 1RF M32.19 - Other organ or system involvement in systemic lupus erythematosus Coding Level of Care Code Est Pt Level 4 (55741) Complex EM visit Add On G2211 Diagnoses Systemic lupus erythematosus with other organ involvement, unspecified SLE type M32.19 Systemic lupus erythematosus type: unspecified Systemic lupus erythematosus organ involvement: other Chronic low back pain without sciatica, unspecified back pain laterality M54.50; G89.29 Back pain laterality: unspecified Chronicity: chronic Sciatica presence: without sciatica Encounter for monitoring of hydroxychloroquine therapy Z51.81; Z79.899
[2025-01-10 08:09] VITALS: BP 100/70; PULSE 72; O2SAT 98; BMI 30.5
== END 2025-01-10 08:48 | disposition home or self-care (01) ==
PROVIDERS: PCP Internal Medicine; Visit Provider Student in an Organized Health Care Education/Training Program
DX: M32.19 Other organ or system involvement in systemic lupus erythematosus (principal); M54.50 Low back pain, unspecified; G89.29 Other chronic pain; Z51.81 Encounter for therapeutic drug level monitoring; Z79.899 Other long term (current) drug therapy
CPT/HCPCS: 99214

== ENCOUNTER → 2025-01-10 07:58 | Outpatient (BNVA) | payer OTHER, SELFPAY | PROVIDERS: PCP Internal Medicine; Visit Provider Student in an Organized Health Care Education/Training Program | DX: M54.50 Low back pain, unspecified (principal); M32.19 Other organ or system involvement in systemic lupus erythematosus; G89.29 Other chronic pain; Z51.81 Encounter for therapeutic drug level monitoring; Z79.899 Other long term (current) drug therapy | CPT/HCPCS: 99212 ==